=== PATIENT | female | born 1995 | race Caucasian/White ===

== ENCOUNTER 2020-03-24 06:43 | Day surgery (SDC) | payer OTHER ==
[~2020-03-24 06:43] MED LIST: Dextrose 5%-0.45% NaCl 1,000 ML IV SCH; Midazolam 1 MG/ML 2 ML SDV ONE; Sodium Chloride 0.9% 10 ML Syringe FLUSH PRN; fentaNYL 100 MCG/2 ML SDV ONE
[2020-03-24] MEDS ORDERED: fentaNYL 100 MCG/2 ML SDV IV ONE ×7 (06:44→08:36)
[2020-03-24] MEDS ORDERED: Midazolam 1 MG/ML 2 ML SDV IV ONE ×9 (06:44→08:39)
[2020-03-24 11:25] VITALS: BP 127/88; PULSE 90
--- NOTE | 2020-03-24 16:38 | OR ---
DATE: 03/24/2020 PROCEDURE: Total colonoscopy, terminal ileoscopy, NBI, and multiple pinch biopsies. INSTRUMENT USED: PCF-H190DL Olympus video colonoscope. PREMEDICATION: Fentanyl 200 mcg intravenous, Versed 6 mg intravenous. The procedure was done under pulse oximetry, BP recording, and air sampling and monitoring. INDICATION: The patient with chronic diarrhea and rectal bleeding unexplained and not responsive to medical measures. Colonoscopic examination is done for detection of any polypoid lesions and removal, biopsies to be obtained for any evidence of microscopic colitis, endoscopic hemostasis therapy if needed. DESCRIPTION OF PROCEDURE: Initial rectal exam showed external hemorrhoidal tags. Rigid anoscopy was normal. The colonoscope was passed with ease up to and beyond the ileocecal junction to visualize normal-appearing terminal ileum, NBI views were obtained. Photographs were taken, multiple pinch biopsies were obtained and sent for histopathology. Photographs were taken of the normal- appearing cecum. No bleeding was noted from any of the visualized areas at the commencement of the examination. Bowel preparation was found to be adequate. Chicago scale 3 in all the regions, total score 9. No stricture. No vascular ectasia. No large isolated ulcerations seen. No evidence of diffuse inflammatory bowel disease in the form of friability, contact bleeding, or ulcerations. No polyp or tumor mass identified. Probing the proximal sides of folds and flexures using adequate distention and clearing up the stool material, withdrawal of the scope was made. Multiple pinch biopsies were taken from the normal-appearing mucosa of the mid transverse colon, mid descending colon, and rectosigmoid and sent for any histopathologic evidence of microscopic colitis. No bleeding was noted from any of the visualized areas. IMPRESSION: External hemorrhoids. The patient tolerated the procedure well. [facility] /[id number]
--- NOTE | 2020-03-24 16:38 | LETTER ---
03/24/2020 RE: SULAIMANSHANITAOLYEN : 1995 [place] [address] Pinto: Ms. Oly Mandel had colonoscopic examination done this morning and she tolerated the procedure well. I herewith send a copy of the endoscopy note and photographs for your review. Thank you. Sincerely, [facility] /[id number]
== END 2020-03-24 10:38 | disposition home or self-care (01) ==
LOC: DL.ENDO 06:43
PROVIDERS: ATTEND Internal Medicine Gastroenterology
DX: K64.4 Residual hemorrhoidal skin tags (principal); K52.9 Noninfective gastroenteritis and colitis, unspecified; K62.5 Hemorrhage of anus and rectum; E66.09 Other obesity due to excess calories; F41.1 Generalized anxiety disorder; F32.9 Major depressive disorder, single episode, unspecified; J45.909 Unspecified asthma, uncomplicated; Z86.69 Personal history of other diseases of the nervous system and sense organs; Z98.890 Other specified postprocedural states; Z68.41 Body mass index [BMI] 40.0-44.9, adult
CPT/HCPCS: 45380; J2250; J3010; J7042

== ENCOUNTER 2020-04-12 06:32 | Day surgery (SDC) | payer OTHER ==
[~2020-04-12 06:32] MED LIST changes: -Dextrose 5%-0.45% NaCl 1,000 ML IV SCH; -Sodium Chloride 0.9% 10 ML Syringe FLUSH PRN
[2020-04-12] MEDS ORDERED: fentaNYL 100 MCG/2 ML SDV IV ONE ×3 (06:33→07:32)
[2020-04-12] MEDS ORDERED: Midazolam 1 MG/ML 2 ML SDV IV ONE ×5 (06:33→07:35)
[2020-04-12] MEDS ORDERED: Dextrose 5%-0.45% NaCl 1,000 ML IV SCH (06:45)
[2020-04-12] MEDS ORDERED: Midazolam 1 MG/ML 2 ML SDV ONE (07:34)
--- NOTE | 2020-04-12 10:15 | LETTER ---
04/12/2020 Susan Pinto MD [address] [address] RE: AYDE RAMÍREZ : 1995 Dr[address] Pinto: Ms. Aldridge Alexandra Marinpardeep had esophagogastroduodenoscopy done this morning and she tolerated the procedure well. I herewith send a copy of the endoscopy note and photographs for your review. Thank you. Sincerely, [facility] /[id number]
[2020-04-12 10:46] VITALS: BP 113/76; PULSE 90
--- NOTE | 2020-04-12 10:47 | OR ---
DATE: 04/12/2020 PROCEDURES: Esophagogastroduodenoscopy and multiple pinch biopsies. INSTRUMENT USED: GIF-HQ190 Olympus video panendoscope. PREMEDICATIONS: No oral or topical anesthesia used. Fentanyl 100 mcg intravenous, Versed 3 mg intravenous. The procedure was done under pulse oximetry, BP recording, and threat monitoring analyst. INDICATION: The patient with persistent heartburn, dyspepsia, as well as related chest pain, unexplained and not responsive to medical measures, on PPI. Esophagogastroduodenoscopy is performed for detection of any active erosive lesions, Pardo esophagus, and/or malignancy also under consideration, H pylori status to be determined, endoscopic hemostasis therapy if needed. The scope was passed with ease. Adequate visualization of the esophagus was made from proximal to distal areas of the esophagus. No upper esophageal lesions identified. No distal esophageal stricture. No uphill or downhill esophageal varices. No Alexia-Carmichael tear. No evidence of erosive esophagitis by Morovis criteria. No esophageal polyp or tumor mass identified. Z-line was seen at around 35 cm distal to the oral verge. Four-quadrant biopsies were taken from the area of the Z-line and sent for any histopathologic evidence of intestinal metaplasia. No proximal gastric varices noted. Gastric fundus examination by retroflexion showed no polypoid lesions. No gastric ulcer, malignant mass, or vascular ectasia identified. Duodenal bulb showed no ulcer. Visualized second part of the duodenum was unremarkable. Multiple pinch biopsies were taken from the gastric antrum and proximal body and sent for PyloriTek test for H pylori and histopathology. No bleeding was noted from any of the visualized areas at the completion of examination. Photographs were taken of the duodenal bulb, gastric antrum, fundus, and distal esophagus. IMPRESSION: Columnar line distal esophagus. The patient tolerated the procedure well. [facility] /[id number]
== END 2020-04-12 09:40 | disposition home or self-care (01) ==
LOC: DL.ENDO 06:32
PROVIDERS: ATTEND Internal Medicine Gastroenterology
DX: K20.9 Esophagitis, unspecified (principal); E66.09 Other obesity due to excess calories; K64.4 Residual hemorrhoidal skin tags; K58.9 Irritable bowel syndrome, unspecified; F41.1 Generalized anxiety disorder; Z68.41 Body mass index [BMI] 40.0-44.9, adult; Z87.19 Personal history of other diseases of the digestive system
CPT/HCPCS: 87077; J2250; J3010; J7042

== ENCOUNTER 2020-09-06 19:51 | Emergency (ER) | payer OTHER ==
[2020-09-06] MEDS ORDERED: Sodium Chloride 0.9% 1,000 ML IV ONE (20:24)
[2020-09-06] MEDS ORDERED: Ondansetron 4 MG/2 ML SDV IVPUSH ONE (20:24)
--- NOTE | 2020-09-06 20:32 | EDM.PDOC ---
ED HPI GENERAL MEDICAL PROBLEM - General Chief Complaint: Abdominal Pain Stated Complaint: STOMACH PAIN Time Seen by Provider: 09/06/20 20:15 Source of Information: Reports: Patient, Old Records, RN, RN Notes Reviewed History Limitations: Reports: No Limitations - History of Present Illness INITIAL COMMENTS - FREE TEXT/NARRATIVE: Patient presents to the ED via personal vehicle with complaints of midepigastric pain. The patient states she is with a LMP of July 31, 2020. She attest to a history of GERD for which she was on Omeprazole via Dr. Herrera, but she has been off of this medication since she discovered she was . She reports the pain woke her up this morning at 0200 and the nausea and vomiting started shortly thereafter. She has experienced roughly five bouts of emesis throughout the day. She states she has tried to eat toast and drink water, but the pain, nausea, and vomiting prevented it. She denies fever, shaking chills, palpitations, shortness of breath, hematemesis, melena, or hematochezia. She does attest to diarrhea yesterday but hasn't had a bowel movement today. Her last meal was at 1800 yesterday. She has trialed TUMS for this pain, with no alleviation of symptoms. Epigastric Pain Score (Numeric/FACES): 9 - Related Data Allergies Allergy/AdvReac Type Severity Reaction Status Date / Time cefixime [From Suprax] Allergy Hives Verified 09/06/20 20:11 Gadolinium-Containing Allergy Hives Verified 09/06/20 20:11 Contrast Medi Home Meds: Home Meds Acetaminophen 325 - 650 mg PO ASDIRECTED PRN 03/23/20 [History] Albuterol [Proair HFA] 1 - 2 puff INH ASDIRECTED PRN 03/23/20 [History] Diclofenac Sodium [Voltaren 1% Gel] 1 applic TOP ASDIRECTED 03/23/20 [History] Erenumab-Aooe [Aimovig Autoinjector] 140 mg INJECT .MONTHLY 03/23/20 [History] Venlafaxine [Effexor XR] 37.5 mg PO DAILY 03/23/20 [History] medroxyPROGESTERone [Depo-Provera] 150 mg INJECT .Q3MTHS 03/23/20 [History] Past Medical History HEENT History: Reports: Impaired Vision, Other (See Below) Other HEENT History: glasses Cardiovascular History: Reports: None Respiratory History: Reports: Asthma, SOB Gastrointestinal History: Reports: None Genitourinary History: Reports: None [employer] WR[employer] History: Reports: Musculoskeletal History: Reports: Arthritis, Fracture Neurological History: Reports: Headaches, Chronic, Migraines Psychiatric History: Reports: Anxiety, Depression Endocrine/Metabolic History: Reports: Obesity/BMI 30+ Hematologic History: Reports: None Immunologic History: Reports: None Oncologic (Cancer) History: Reports: None Dermatologic History: Reports: None - Infectious Disease History Infectious Disease History: Reports: Chicken Pox - Past Surgical History Head Surgeries/Procedures: Reports: None HEENT Surgical History: Reports: Adenoidectomy, Oral Surgery, Tonsillectomy Cardiovascular Surgical History: Reports: None Respiratory Surgical History: Reports: None GI Surgical History: Reports: Colonoscopy Female Surgical History: Reports: None Endocrine Surgical History: Reports: None Neurological Surgical History: Reports: None Musculoskeletal Surgical History: Reports: Other (See Below) Other Musculoskeletal Surgeries/Procedures:: wrist surgery Oncologic Surgical History: Reports: None Dermatological Surgical History: Reports: None Social & Family History - Family History Cardiac: Reports: Hypertension Neurological: Reports: Migraines Oncologic: Reports: Breast, Colon - Tobacco Use Tobacco Use Status *Q: Never Tobacco User Second Hand Smoke Exposure: No - Caffeine Use Caffeine Use: Reports: None - Recreational Drug Use Recreational Drug Use: No - Sexual History Sexual History: Reports: Sexually Active, Single Partner - Living Situation & Occupation Living situation: Reports: Occupation: Employed (Lives with .) ED ROS GENERAL - Review of Systems Review Of Systems: Comprehensive ROS is negative, except as noted in HPI. ED EXAM, GI/ABD - Physical Exam Exam: See Below Exam Limited By: No Limitations General Appearance: Alert, WD/WN, No Apparent Distress Eyes: Bilateral: Normal Appearance, EOMI Throat/Mouth: Normal Inspection, Normal Voice, No Airway Compromise Head: Atraumatic, Normocephalic Neck: Normal Inspection, Supple, Non-Tender, Full Range of Motion. No: Lymphadenopathy (L), Lymphadenopathy (R) Respiratory/Chest: No Respiratory Distress, Lungs Clear, Normal Breath Sounds, No Accessory Muscle Use, Chest Non-Tender Cardiovascular: Normal Peripheral Pulses, Regular Rate, Rhythm, No Edema, No Gallop, No JVD, No Murmur, No Rub GI/Abdominal Exam: Normal Bowel Sounds, Soft, No Abnormal Bruit, No Mass, Pelvis Stable, Tender (To palpation of LUQ) (Female) Exam: Deferred Rectal (Female) Exam: Deferred Back Exam: Normal Inspection, Full Range of Motion. No: CVA Tenderness (L), CVA Tenderness (R) Extremities: Normal Inspection, Normal Range of Motion, Non-Tender, Normal Capillary Refill, No Pedal Edema Neurological: Alert, Oriented, CN II-XII Intact, Normal Cognition, Normal Gait, No Motor/Sensory Deficits Psychiatric: Normal Affect, Normal Mood Skin Exam: Warm, Dry, Intact, Normal Color, No Rash. No: Ecchymosis, Erythema, Jaundice, Mottled, Pallor, Petechiae Course - Vital Signs Last Recorded V/S: Last Vital Signs Temp 97.5 F 09/06/20 19:59 Pulse 101 H 09/06/20 19:59 Resp 19 09/06/20 19:59 BP 115/89 09/06/20 19:59 Pulse Ox 100 09/06/20 19:59 - Orders/Labs/Meds Orders: Active Orders 24 hr Category Date Time Status CULTURE URINE [RM] Stat Lab 09/06/20 20:16 Received Labs: Laboratory Tests 09/06/20 09/06/20 09/06/20 Range/Units 20:16 20:28 20:28 WBC 10.7 H (5.0-10.0) 10^3/uL RBC 5.05 (4.2-5.4) 10^6/uL Hgb 14.0 D (12.0-16.0) g/dL Hct 41.3 (37.0-47.0) % MCV 81.8 D (80-100) fL MCH 27.7 (27.0-34.0) pg MCHC 33.9 (33.0-35.0) g/dL Plt Count 212 (150-450) 10^3/uL Neut % (Auto) 71.9 (42.2-75.2) % Lymph % (Auto) 18.8 L (20.5-50.1) % Marion % (Auto) 8.6 H (2-8) % Eos % (Auto) 0.5 L (1.0-3.0) % Baso % (Auto) 0.2 (0.0-1.0) % Sodium (136-145) mmol/L Potassium (3.5-5.1) mmol/L Chloride (98-107) mmol/L Carbon Dioxide (21-32) mmol/L Anion Gap (7-13) mEq/L BUN (7-18) mg/dL Creatinine (0.55-1.02) mg/dL Est Cr Clr Drug Dosing mL/min Estimated GFR (MDRD) BUN/Creatinine Ratio (No establ ref range) Glucose (74-99) mg/dL Calcium (8.5-10.1) mg/dL Total Bilirubin (0.2-1.0) mg/dL AST (15-37) U/L ALT (14-59) U/L Alkaline Phosphatase (46-116) U/L Total Protein (6.4-8.2) g/dL Albumin (3.4-5.0) g/dL Globulin Albumin/Globulin Ratio Amylase (25-115) U/L Lipase (73-393) U/L HCG, Quant 8533 H (0-6) mIU/mL Urine Color Yellow (YELLOW) Urine Appearance Cloudy (CLEAR) Urine pH 6.0 (5.0-9.0) Ur Specific Crandall >= 1.030 (1.005-1.030) Urine Protein Trace H (NEGATIVE) Urine Glucose (UA) Negative (NEGATIVE) Urine Ketones Trace H (NEGATIVE) Urine Occult Blood Trace-intact H (NEGATIVE) Urine Nitrite Negative (NEGATIVE) Urine Bilirubin Negative (NEGATIVE) Urine Urobilinogen 0.2 (0.2-1.0) mg/dL Ur Leukocyte Esterase Small H (NEGATIVE) Urine RBC 0-5 /HPF Urine WBC 50-75 H (0-5/HPF) /HPF Ur Epithelial Cells Moderate H (NOT SEEN) /HPF Calcium Oxalate Crystal Few H (NOT SEEN) /HPF Amorphous Sediment Occasional (NOT SEEN) /HPF Urine Bacteria Few (0-FEW/HPF) /HPF Urine Mucus Rare (NOT SEEN) /LPF 09/06/20 Range/Units 20:28 WBC (5.0-10.0) 10^3/uL RBC (4.2-5.4) 10^6/uL Hgb (12.0-16.0) g/dL Hct (37.0-47.0) % MCV (80-100) fL MCH (27.0-34.0) pg MCHC (33.0-35.0) g/dL Plt Count (150-450) 10^3/uL Neut % (Auto) (42.2-75.2) % Lymph % (Auto) (20.5-50.1) % Marion % (Auto) (2-8) % Eos % (Auto) (1.0-3.0) % Baso % (Auto) (0.0-1.0) % Sodium 139 (136-145) mmol/L Potassium 3.4 L (3.5-5.1) mmol/L Chloride 102 (98-107) mmol/L Carbon Dioxide 27 (21-32) mmol/L Anion Gap 13.4 H (7-13) mEq/L BUN 10 (7-18) mg/dL Creatinine 0.84 (0.55-1.02) mg/dL Est Cr Clr Drug Dosing 87.64 mL/min Estimated GFR (MDRD) > 60 BUN/Creatinine Ratio 11.9 (No establ ref range) Glucose 116 H (74-99) mg/dL Calcium 9.4 (8.5-10.1) mg/dL Total Bilirubin 0.5 (0.2-1.0) mg/dL AST 11 L (15-37) U/L ALT 40 (14-59) U/L Alkaline Phosphatase 109 (46-116) U/L Total Protein 7.5 (6.4-8.2) g/dL Albumin 4.0 (3.4-5.0) g/dL Globulin 3.5 Albumin/Globulin Ratio 1.1 Amylase 35 (25-115) U/L Lipase 81 (73-393) U/L HCG, Quant (0-6) mIU/mL Urine Color (YELLOW) Urine Appearance (CLEAR) Urine pH (5.0-9.0) Ur Specific Crandall (1.005-1.030) Urine Protein (NEGATIVE) Urine Glucose (UA) (NEGATIVE) Urine Ketones (NEGATIVE) Urine Occult Blood (NEGATIVE) Urine Nitrite (NEGATIVE) Urine Bilirubin (NEGATIVE) Urine Urobilinogen (0.2-1.0) mg/dL Ur Leukocyte Esterase (NEGATIVE) Urine RBC /HPF Urine WBC (0-5/HPF) /HPF Ur Epithelial Cells (NOT SEEN) /HPF Calcium Oxalate Crystal (NOT SEEN) /HPF Amorphous Sediment (NOT SEEN) /HPF Urine Bacteria (0-FEW/HPF) /HPF Urine Mucus (NOT SEEN) /LPF Meds: Medications Discontinued Medications Generic Name Dose Route Start Last Admin Trade Name Tri PRN Reason Stop Dose Admin Sodium Chloride 1,000 mls @ 999 mls/hr 09/06/20 20:24 09/06/20 20:35 Normal Saline IV 09/06/20 21:24 999 mls/hr .BOLUS ONE Administration Ondansetron HCl 4 mg 09/06/20 20:24 09/06/20 20:30 Zofran IVPUSH 09/06/20 20:25 4 mg ONETIME ONE Administration - Re-Assessments/Exams Free Text/Narrative Re-Assessment/Exam: 09/06/20 CBC, CMP, UA unremarkable for acute processes. Lipase/Amylase WNL. HCG Quant 8533. Patient resting comfortably following administration of NS 1L bolus and Zofran 4mg IVP. She states she is still experiencing a pressure within her epigastric, but no pain. Patient instructed to follow up with primary care provider regarding today's visit; she has an initial appointment with Dr. Winslow scheduled for October. Patient instructed to take OTC Unisom, eat small frequent meals, avoid high fat/greasy/spicy foods, and sip water throughout the day to help with nausea. Patient verbalized understanding and agreement with the plan of care. Departure - Departure Time of Disposition: 21:25 Disposition: Home, Self-Care 01 Condition: Good Clinical Impression: Epigastric abdominal pain during in first trimester, Nausea and vomiting during prior to 22 weeks gestation, Dehydration during pregn amanuel - Discharge Information *PRESCRIPTION DRUG MONITORING PROGRAM REVIEWED*: Not Applicable *COPY OF PRESCRIPTION DRUG MONITORING REPORT IN PATIENT ISABELL: Not Applicable Instructions: Abdominal Pain During , [id number], Morning Sickness, [id number] Forms: ED Department Discharge Additional Instructions: 1.) You may take over the counter Unisom to help with nausea. 2.) Eat small, frequent meals avoiding high-fat, spicy, and greasy foods to help with nausea and epigastric pain. 3.) Avoid eating late at night. 4.) Sip plenty of water throughout the day to help with nausea and hydration. 5.) Hot green tea may help with nausea and epigastric pain. 6.) Follow up with Dr. Winslow regarding today's visit, she may want to see you sooner than October. Sepsis Event Note (ED) - Evaluation Sepsis Screening Result: No Definite Risk - Focused Exam Vital Signs: Vital Signs Temp Pulse Resp BP Pulse Ox 09/06/20 19:59 97.5 F 101 H 19 115/89 100 - My Orders Last 24 Hours: My Active Orders 09/06/20 20:16 CULTURE URINE [RM] Stat - Assessment/Plan Last 24 Hours: My Active Orders 09/06/20 20:16 CULTURE URINE [RM] Stat
[2020-09-06 20:52] LABS: ANION GAP 13.4 mEq/L (7-13); CHLORIDE,CL 102 mmol/L (98-107); SODIUM,NA 139 mmol/L (136-145)
[2020-09-06 21:32] VITALS: BP 126/85; PULSE 99
== END 2020-09-06 21:35 | disposition home or self-care (01) ==
LOC: DL.ED 19:51
DX: O99.891 Other specified diseases and conditions complicating pregnancy (principal); R10.13 Epigastric pain; O21.9 Vomiting of pregnancy, unspecified; O99.281 Endocrine, nutritional and metabolic diseases complicating pregnancy, first trimester; E86.0 Dehydration; J45.909 Unspecified asthma, uncomplicated; E66.9 Obesity, unspecified; O99.211 Obesity complicating pregnancy, first trimester; O99.511 Diseases of the respiratory system complicating pregnancy, first trimester; Z3A.01 Less than 8 weeks gestation of pregnancy
CPT/HCPCS: 36415; 80053; 81001; 82150; 83690; 84702; 85025; 87086; 96374; 99283; 99284; J2405; J7030

== ENCOUNTER 2021-04-13 12:39 | Inpatient (IN) | payer OTHER ==
[2021-04-13] MEDS ORDERED: Betamethasone Acetate/Betamethasone Sod Phosphate 30 MG/5 ML MDV IM ONE (13:23)
[2021-04-13] MEDS ORDERED: Calcium Carbonate 500 MG Tab.Chew PO ONE (16:14)
[2021-04-13] MEDS: Labetalol 100 MG Tab PO SCH ×2 (18:53→21:03)
[2021-04-13] MEDS ORDERED: hydrOXYzine HCl 25 MG Tab PO PRN (21:12)
[2021-04-13] MEDS ORDERED: Calcium Carbonate 500 MG Tab.Chew PO PRN (22:24)
[2021-04-14] MEDS ORDERED: Acetaminophen 325 MG Tab PO PRN (10:51)
[2021-04-14] MEDS ORDERED: Sodium Chloride 0.9% 10 ML Syringe FLUSH PRN (10:51)
[2021-04-14] MEDS ORDERED: Promethazine 25 MG/ML SDV IM PRN (10:55)
[2021-04-14] MEDS ORDERED: ePHEDrine 50 MG/ML SDV IVPUSH PRN (10:55)
[2021-04-14] MEDS ORDERED: Naloxone 2 MG/2 ML Syringe IVPUSH PRN (10:55)
[2021-04-14] MEDS ORDERED: Lactated Ringers 500 ML IV SCH ×2 (11:00)
[2021-04-14] MEDS: Labetalol 100 MG Tab PO SCH ×2 (11:23→21:51)
--- NOTE | 2021-04-14 11:51 | HP ---
HISTORY OF PRESENT ILLNESS: This patient is a 25-year-old 2, para 1-0-0- 1 female, last menstrual period 07/31/2020, EDC 05/07/2021, EGA 36 and 5/7 weeks gestation who reported to Labor and Delivery yesterday with elevated blood pressures. They were running anywhere between 150s to 170s over high 80s to 100s. She did not have a headache, blurred vision, epigastric pain, or scotomata. She did have proteinuria the week before, it was at 300 mg/dL on a protein creatinine ratio. We ended up to give her labetalol 200 mg p.o. to bring her blood pressures down last night and actually it worked very nicely. It is running anywhere between 1 teens to 120s over 70s. Her last blood pressure was 140/86. She denies any nausea, vomiting, diarrhea. No fever or chills. No dysuria, frequency, urgency with urination. No leg pain, leg edema, headaches, blurred vision, epigastric pain, or scotomata. She also had history of gestational diabetes, diet controlled, well controlled. She stated that her last on 07/18/2018, she delivered a 39 and 5/7 week male infant, weighing 6 pounds 11.6 ounces of sequela. PAST MEDICAL HISTORY: Gestational diabetes, diet controlled. No history of hypertension for now, cancer, thyroid disease, thromboembolic disease, breast lesions, or blood transfusions. FAMILY HISTORY: Positive for breast cancer in her mother at the age of 50. Migraine headaches in her cousin and grandmother and aunt. SOCIAL HISTORY: She denies any tobacco use, alcohol use, or illicit drug use. She is . Her is [place]. 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 PAST SURGICAL HISTORY: Tonsillectomy, adenoidectomy, wrist scaphoid repair with bone graft in 2010. MEDICATIONS: vitamin and sertraline. ALLERGIES: Suprax, gadolinium. LABS: Blood type A positive, antibody screen negative. Rubella immune. Syphilis nonreactive. Hepatitis B surface antigen nonreactive. HIV nonreactive. Hepatitis C antibody nonreactive. Group B strep pending. REVIEW OF SYSTEMS: All pertinent positive and negative review of systems per HPI. All other systems reviewed and negative. 10 point review of systems discussed with the patient. She has no other issues. OBJECTIVE: Vital Signs: Well-developed, well-nourished female in no acute distress. Vital Signs: Stable. Afebrile. Blood pressure 140/86, pulse 87, respirations 18, O2 saturation 98%, temp 98.8 degrees. HEENT: Unremarkable. Abdomen: Gravid, nontender. heart tones in the 130s to 140s, occasional contractions noted. No decelerations. Category 1 strip. GENITOURINARY: Cervix- 1 cm/70%/-3 Extremities: No edema, erythema, or tenderness noted. ASSESSMENT: 1. A 36 and 5/7 week intrauterine . 2. Preeclampsia without severe features. PLAN: 1. I had a long discussion with the patient and her along with Dr. Gallego, the 2nd year [employer] market president. After she gets her 2nd dose of betamethasone 12 mg IM at 1:30 a.m. this afternoon, we will start Pitocin for induction of labor. 2. Risks, benefits, complications, and side effects were discussed with the patient. 3. All questions answered. 4. We did discuss magnesium sulfate if her blood pressures get into the severe range where she starts having severe symptoms. 5. We will start Pitocin IV and then artificial rupture of membranes when the cervix ripens more. 6. Dr. Jessica Quinonez has been apprised to the plan, so she can be ready for the infant at the time of delivery. [facility] /[id number] MTDD
[2021-04-14] MEDS: Lactated Ringers 1,000 ML IV SCH ×2 (13:03→23:47)
[2021-04-14] MEDS: Oxytocin/Normal Saline 30 UNIT/500 ML BAG IV SCH (13:28)
[2021-04-14] MEDS ORDERED: Betamethasone Acetate/Betamethasone Sod Phosphate 30 MG/5 ML MDV IM ONE (13:30)
[2021-04-14] MEDS ORDERED: Nalbuphine 10 MG/1 ML Vial IV ONE ×2 (16:56→21:37)
[2021-04-14] MEDS ORDERED: Penicillin G Potassium 5 MILLUNITS in Sodium Chloride 0.9% 100 ML IV ONE (17:22)
--- NOTE | 2021-04-14 20:43 | PCM.PNLD ---
<Megan Gallego H - Last Filed: 04/14/21 20:38> Labor Progress Note - VS & Meds Vital Signs: Last Vital Signs Temp 99.3 F 04/14/21 17:15 Pulse 83 04/14/21 18:45 Resp 20 04/14/21 18:45 BP 132/63 04/14/21 18:45 Pulse Ox Active Medications: Current Medications Acetaminophen (Acetaminophen 325 Mg Tab) 650 mg PO Q4H PRN PRN Reason: Pain/Fever Calcium Carbonate/Glycine (Calcium Carbonate 500 Mg Tab.Chew) 1,000 mg PO Q2H PRN PRN Reason: Heartburn Last Admin: 04/13/21 22:42 Dose: 1,000 mg Documented by: Ephedrine Sulfate (Ephedrine 50 Mg/Ml Sdv) 5 mg IVPUSH Q5M PRN PRN Reason: See Label Comments Hydroxyzine HCl (Hydroxyzine Hcl 25 Mg Tab) 50 mg PO BEDTIME PRN PRN Reason: Sleep Lactated Ringer's (Ringers, Lactated) 1,000 mls @ 125 mls/hr IV ASDIRECTED [facility] Last Admin: 04/14/21 13:03 Dose: 125 mls/hr Documented by: Oxytocin/Sodium Chloride (Pitocin In Ns 30 Unit/500 Ml) 30 unit in 500 mls @ 2 mls/hr IV TITRATE [facility]; Protocol Last Titration: 04/14/21 18:00 Dose: 11 munits/min, 11 mls/hr Documented by: Lactated Ringer's (Ringers, Lactated) 500 mls @ 999 mls/hr IV SEECOMMENT [place] Lactated Ringer's (Ringers, Lactated) 500 mls @ 999 mls/hr IV .BOLUS [place] Penicillin G Potassium 3 (millunits/ Sodium Chloride) 100 mls @ 200 mls/hr IV Q4H [facility] Labetalol HCl (Labetalol 100 Mg Tab) 200 mg PO BID [facility] Last Admin: 04/14/21 11:23 Dose: Not Given Documented by: Naloxone HCl (Naloxone 2 Mg/2 Ml Syringe) 0.1 mg IVPUSH SEECOMMENT PRN PRN Reason: Respiratory Depression Ondansetron HCl (Ondansetron 4 Mg/2 Ml Sdv) 4 mg IVPUSH Q4H PRN PRN Reason: Nausea/Vomiting Promethazine HCl (Promethazine 25 Mg/Ml Sdv) 12.5 mg IM Q6H PRN PRN Reason: Nausea/Vomiting Sodium Chloride (Sodium Chloride 0.9% 10 Ml Syringe) 10 ml FLUSH ASDIRECTED PRN PRN Reason: Keep Vein Open Discontinued Medications Betamethasone Acet/Betameth SodPhos (Betamethasone Acetate/Betamethasone Sod Phosphate 30 Mg/5 Ml Mdv) 12 mg IM ONETIME ONE Stop: 04/13/21 13:24 Last Admin: 04/13/21 13:57 Dose: 12 mg Documented by: Betamethasone Acet/Betameth SodPhos (Betamethasone Acetate/Betamethasone Sod Phosphate 30 Mg/5 Ml Mdv) 12 mg IM ONETIME ONE Stop: 04/14/21 13:31 Last Admin: 04/14/21 13:25 Dose: 12 mg Documented by: Calcium Carbonate/Glycine (Calcium Carbonate 500 Mg Tab.Chew) 1,000 mg PO ONETIME ONE Stop: 04/13/21 16:15 Last Admin: 04/13/21 16:27 Dose: 1,000 mg Documented by: Penicillin G Potassium 5 (millunits/ Sodium Chloride) 100 mls @ 200 mls/hr IV ONETIME ONE Stop: 04/14/21 17:51 Last Admin: 04/14/21 18:19 Dose: 200 mls/hr Documented by: Nalbuphine HCl (Nalbuphine 10 Mg/1 Ml Vial) 10 mg IV ONETIME ONE Stop: 04/14/21 16:57 Last Admin: 04/14/21 17:13 Dose: 10 mg Documented by: - Uterine Contractions Uterine Monitoring Mode: External Mcmillin Contraction Frequency (min): 3-7 Contraction Duration (sec): 90-120 Contraction Intensity: Moderate Uterine Resting Tone: Soft - Monitoring Monitor Mode: External Ultrasound Heart Rate (FHR) Baseline: 120 Heart Rate (FHR) Variability: Moderate (6-25 bpm) Accelerations: Present, 15x15 Decelerations: None Strip Review: Category I - Vaginal Exam Dilation (cm): 2.5 Effacement (Percent): 75 Station: -2 Cervical Position: Anterior Sterile Vaginal Exam Performed By: Megan Gallego - Labor Progress (Free Text) Labor Progress: To patient's room for cervical exam and potential AROM for labor augmentation. Patient comfortable. Initial cervical exam is 1.5cm, 75% effaced, -2 station. Head well engaged. Discussed risks and benefits with patient regarding AROM. Questions answered. Patient voiced verbal consent for AROM. Amniohook placed. AROM occurred with clear fluid. Patient tolerated procedure well. Plan: 1. Continue routine labor management. 2. Continue with pitocin increase 2x2 max of 20. Currently at a dose of 13U. Procedure was completed under supervision of Dr. Quinn. -Megan Gallego MD PGY-II. <Artur Quinn - Last Filed: 04/15/21 06:48> Labor Progress Note - VS & Meds Vital Signs: Last Vital Signs Temp 98 F 04/15/21 04:45 Pulse 79 04/15/21 05:15 Resp 20 04/14/21 18:45 BP 139/67 04/15/21 05:15 Pulse Ox 98 04/15/21 04:30 Active Medications: Current Medications Acetaminophen (Acetaminophen 325 Mg Tab) 650 mg PO Q4H PRN PRN Reason: Pain/Fever Calcium Carbonate/Glycine (Calcium Carbonate 500 Mg Tab.Chew) 1,000 mg PO Q2H PRN PRN Reason: Heartburn Last Admin: 04/13/21 22:42 Dose: 1,000 mg Documented by: Ephedrine Sulfate (Ephedrine 50 Mg/Ml Sdv) 5 mg IVPUSH Q5M PRN PRN Reason: See Label Comments Hydroxyzine HCl (Hydroxyzine Hcl 25 Mg Tab) 50 mg PO BEDTIME PRN PRN Reason: Sleep Lactated Ringer's (Ringers, Lactated) 1,000 mls @ 125 mls/hr IV ASDIRECTED [facility] Last Admin: 04/15/21 06:21 Dose: 125 mls/hr Documented by: Oxytocin/Sodium Chloride (Pitocin In Ns 30 Unit/500 Ml) 30 unit in 500 mls @ 2 mls/hr IV TITRATE [place]; Protocol Last Titration: 04/15/21 05:39 Dose: 8 munits/min, 8 mls/hr Documented by: Lactated Ringer's (Ringers, Lactated) 500 mls @ 999 mls/hr IV SEECOMMENT [facility] Lactated Ringer's (Ringers, Lactated) 500 mls @ 999 mls/hr IV .BOLUS [place] Penicillin G Potassium 3 (millunits/ Sodium Chloride) 100 mls @ 200 mls/hr IV Q4H [facility] Last Admin: 04/15/21 05:34 Dose: 200 mls/hr Documented by: Labetalol HCl (Labetalol 100 Mg Tab) 200 mg PO BID [facility] Last Admin: 04/14/21 21:51 Dose: Not Given Documented by: Naloxone HCl (Naloxone 2 Mg/2 Ml Syringe) 0.1 mg IVPUSH SEECOMMENT PRN PRN Reason: Respiratory Depression Ondansetron HCl (Ondansetron 4 Mg/2 Ml Sdv) 4 mg IVPUSH Q4H PRN PRN Reason: Nausea/Vomiting Last Admin: 04/15/21 06:31 Dose: 4 mg Documented by: Promethazine HCl (Promethazine 25 Mg/Ml Sdv) 12.5 mg IM Q6H PRN PRN Reason: Nausea/Vomiting Sodium Chloride (Sodium Chloride 0.9% 10 Ml Syringe) 10 ml FLUSH ASDIRECTED PRN PRN Reason: Keep Vein Open Discontinued Medications Betamethasone Acet/Betameth SodPhos (Betamethasone Acetate/Betamethasone Sod Phosphate 30 Mg/5 Ml Mdv) 12 mg IM ONETIME ONE Stop: 04/13/21 13:24 Last Admin: 04/13/21 13:57 Dose: 12 mg Documented by: Betamethasone Acet/Betameth SodPhos (Betamethasone Acetate/Betamethasone Sod Phosphate 30 Mg/5 Ml Mdv) 12 mg IM ONETIME ONE Stop: 04/14/21 13:31 Last Admin: 04/14/21 13:25 Dose: 12 mg Documented by: Calcium Carbonate/Glycine (Calcium Carbonate 500 Mg Tab.Chew) 1,000 mg PO ONETIME ONE Stop: 04/13/21 16:15 Last Admin: 04/13/21 16:27 Dose: 1,000 mg Documented by: Epinephrine HCl (Epinephrine 1 Mg/Ml Sdv) Confirm Administered Dose 1 mg .ROUTE .STK-MED ONE Stop: 04/15/21 00:11 Last Admin: 04/15/21 02:10 Dose: Not Given Documented by: Epinephrine HCl (Epinephrine 1 Mg/Ml Sdv) Confirm Administered Dose 1 mg .ROUTE .STK-MED ONE Stop: 04/15/21 06:11 Last Admin: 04/15/21 06:26 Dose: Not Given Documented by: Fentanyl (Fentanyl 100 Mcg/2 Ml Sdv) Confirm Administered Dose 100 mcg .ROUTE .STK-MED ONE Stop: 04/15/21 00:11 Last Admin: 04/15/21 02:10 Dose: Not Given Documented by: Fentanyl (Fentanyl 100 Mcg/2 Ml Sdv) Confirm Administered Dose 100 mcg .ROUTE .STK-MED ONE Stop: 04/15/21 06:10 Last Admin: 04/15/21 06:26 Dose: Not Given Documented by: Penicillin G Potassium 5 (millunits/ Sodium Chloride) 100 mls @ 200 mls/hr IV ONETIME ONE Stop: 04/14/21 17:51 Last Admin: 04/14/21 18:19 Dose: 200 mls/hr Documented by: Nalbuphine HCl (Nalbuphine 10 Mg/1 Ml Vial) 10 mg IV ONETIME ONE Stop: 04/14/21 16:57 Last Admin: 04/14/21 17:13 Dose: 10 mg Documented by: Nalbuphine HCl (Nalbuphine 10 Mg/1 Ml Vial) 10 mg IV ONETIME ONE Stop: 04/14/21 21:38 Last Admin: 04/14/21 21:49 Dose: 10 mg Documented by: Sufentanil Citrate (Sufentanil 50 Mcg/1 Ml Amp) Confirm Administered Dose 50 mcg .ROUTE .STK-MED ONE Stop: 04/15/21 00:11 Last Admin: 04/15/21 02:11 Dose: Not Given Documented by: Sufentanil Citrate (Sufentanil 50 Mcg/1 Ml Amp) Confirm Administered Dose 50 mcg .ROUTE .STK-MED ONE Stop: 04/15/21 06:11 Last Admin: 04/15/21 06:26 Dose: Not Given Documented by: - Labor Progress (Free Text) Labor Progress: The [facility] executive vice president Dr. Megan Gallego and I discussed the patient and I was involved the entire time with all planning and treatment of this patient.
[2021-04-14] MEDS: Penicillin G Potassium 3 MILLUNITS in Sodium Chloride 0.9% 100 ML IV SCH (21:30)
[2021-04-14] MEDS: Ondansetron 4 MG/2 ML SDV IVPUSH PRN (23:47)
[2021-04-15] MEDS ORDERED: fentaNYL 100 MCG/2 ML SDV ITHECAL ONE ×3 (00:10→06:10)
[2021-04-15] MEDS ORDERED: EPINEPHrine 1 MG/ML SDV ONE ×4 (00:10→06:10)
[2021-04-15] MEDS ORDERED: fentaNYL 100 MCG/2 ML SDV ONE ×2 (00:10→06:09)
[2021-04-15] MEDS: Lactated Ringers 1,000 ML IV SCH ×3 (00:18→06:21)
--- NOTE | 2021-04-15 00:41 | PCM.PRNOTE ---
- Free Text/Narrative Note: Requested to provide analgesia to full term patient in severe pain. Upon entering the room, patient is sitting on edge of bed complaining of severe abdominal/pelvic pain and discomfort. Procedure was discussed with patient including adverse outcomes and expectations. Pt consented to analgesia, SAB/IT. Pt placed into a proper sitting position. Landmarks for SAB/IT were identified and marked. Hands were washed and appropriate PPE was applied. Back was prepped with betadine x3. A sterile, transparent, fenestrated drape was applied. Excess betadine was removed. Using 3 mL of a 1% lidocaine solution, a skin wheel was placed at the L2/L3 interspace. A 24 ga (4 inch) Pencan spinal needle was inserted until positive for CSF. Negative for heme or paresthesias. Injected fentanyl 25 mcg, sufentanil 20 mcg, and 7.5 mg of a 0.75% bupivacaine solution with an epi wash. Pt was placed left lateral tilt position for approximately 20 minutes. There were zero complications or adverse outcomes. Will continue to monitor. Procedure Date & Time: 04/15/21 [id number]
[2021-04-15] MEDS: Penicillin G Potassium 3 MILLUNITS in Sodium Chloride 0.9% 100 ML IV SCH ×3 (01:39→10:02)
[2021-04-15] MEDS: Ondansetron 4 MG/2 ML SDV IVPUSH PRN (06:31)
--- NOTE | 2021-04-15 06:55 | PCM.PRNOTE ---
- Free Text/Narrative Note: Requested to provide analgesia to full term patient in severe pain. Upon entering the room, patient is sitting on edge of bed complaining of severe abdominal/pelvic pain and discomfort. Procedure was discussed with patient including adverse outcomes and expectations. Pt consented to analgesia, SAB/IT. Pt placed into a proper sitting position. Landmarks for SAB/IT were identified and marked. Hands were washed and appropriate PPE was applied. Back was prepped with betadine x3. A sterile, transparent, fenestrated drape was applied. Excess betadine was removed. Using 3 mL of a 1% lidocaine solution, a skin wheel was placed at the L2/L3 interspace. A 24 ga (4 inch) Pencan spinal needle was inserted until positive for CSF. Negative for heme or paresthesias. Injected fentanyl 20 mcg, sufentanil 20 mcg, and 6 mg of a 0.75% bupivacaine solution with an epi wash. Pt was placed left lateral tilt position for approximately 20 minutes. There were zero complications or adverse outcomes. Will continue to monitor. Procedure Date & Time: 04/15/21 [id number]
--- NOTE | 2021-04-15 07:00 | PCM.PNLD ---
Labor Progress Note - VS & Meds Vital Signs: Last Vital Signs Temp 98 F 04/15/21 04:45 Pulse 79 04/15/21 05:15 Resp 20 04/14/21 18:45 BP 139/67 04/15/21 05:15 Pulse Ox 98 04/15/21 04:30 Active Medications: Current Medications Acetaminophen (Acetaminophen 325 Mg Tab) 650 mg PO Q4H PRN PRN Reason: Pain/Fever Calcium Carbonate/Glycine (Calcium Carbonate 500 Mg Tab.Chew) 1,000 mg PO Q2H PRN PRN Reason: Heartburn Last Admin: 04/13/21 22:42 Dose: 1,000 mg Documented by: Ephedrine Sulfate (Ephedrine 50 Mg/Ml Sdv) 5 mg IVPUSH Q5M PRN PRN Reason: See Label Comments Hydroxyzine HCl (Hydroxyzine Hcl 25 Mg Tab) 50 mg PO BEDTIME PRN PRN Reason: Sleep Lactated Ringer's (Ringers, Lactated) 1,000 mls @ 125 mls/hr IV ASDIRECTED [facility] Last Admin: 04/15/21 06:21 Dose: 125 mls/hr Documented by: Oxytocin/Sodium Chloride (Pitocin In Ns 30 Unit/500 Ml) 30 unit in 500 mls @ 2 mls/hr IV TITRATE [facility]; Protocol Last Titration: 04/15/21 05:39 Dose: 8 munits/min, 8 mls/hr Documented by: Lactated Ringer's (Ringers, Lactated) 500 mls @ 999 mls/hr IV SEECOMMENT [place] Lactated Ringer's (Ringers, Lactated) 500 mls @ 999 mls/hr IV .BOLUS [place] Penicillin G Potassium 3 (millunits/ Sodium Chloride) 100 mls @ 200 mls/hr IV Q4H [facility] Last Admin: 04/15/21 05:34 Dose: 200 mls/hr Documented by: Labetalol HCl (Labetalol 100 Mg Tab) 200 mg PO BID [facility] Last Admin: 04/14/21 21:51 Dose: Not Given Documented by: Naloxone HCl (Naloxone 2 Mg/2 Ml Syringe) 0.1 mg IVPUSH SEECOMMENT PRN PRN Reason: Respiratory Depression Ondansetron HCl (Ondansetron 4 Mg/2 Ml Sdv) 4 mg IVPUSH Q4H PRN PRN Reason: Nausea/Vomiting Last Admin: 04/15/21 06:31 Dose: 4 mg Documented by: Promethazine HCl (Promethazine 25 Mg/Ml Sdv) 12.5 mg IM Q6H PRN PRN Reason: Nausea/Vomiting Sodium Chloride (Sodium Chloride 0.9% 10 Ml Syringe) 10 ml FLUSH ASDIRECTED PRN PRN Reason: Keep Vein Open Discontinued Medications Betamethasone Acet/Betameth SodPhos (Betamethasone Acetate/Betamethasone Sod Phosphate 30 Mg/5 Ml Mdv) 12 mg IM ONETIME ONE Stop: 04/13/21 13:24 Last Admin: 04/13/21 13:57 Dose: 12 mg Documented by: Betamethasone Acet/Betameth SodPhos (Betamethasone Acetate/Betamethasone Sod Phosphate 30 Mg/5 Ml Mdv) 12 mg IM ONETIME ONE Stop: 04/14/21 13:31 Last Admin: 04/14/21 13:25 Dose: 12 mg Documented by: Calcium Carbonate/Glycine (Calcium Carbonate 500 Mg Tab.Chew) 1,000 mg PO ONETIME ONE Stop: 04/13/21 16:15 Last Admin: 04/13/21 16:27 Dose: 1,000 mg Documented by: Epinephrine HCl (Epinephrine 1 Mg/Ml Sdv) Confirm Administered Dose 1 mg .ROUTE .STK-MED ONE Stop: 04/15/21 00:11 Last Admin: 04/15/21 02:10 Dose: Not Given Documented by: Epinephrine HCl (Epinephrine 1 Mg/Ml Sdv) Confirm Administered Dose 1 mg .ROUTE .STK-MED ONE Stop: 04/15/21 06:11 Last Admin: 04/15/21 06:26 Dose: Not Given Documented by: Fentanyl (Fentanyl 100 Mcg/2 Ml Sdv) Confirm Administered Dose 100 mcg .ROUTE .STK-MED ONE Stop: 04/15/21 00:11 Last Admin: 04/15/21 02:10 Dose: Not Given Documented by: Fentanyl (Fentanyl 100 Mcg/2 Ml Sdv) Confirm Administered Dose 100 mcg .ROUTE .STK-MED ONE Stop: 04/15/21 06:10 Last Admin: 04/15/21 06:26 Dose: Not Given Documented by: Penicillin G Potassium 5 (millunits/ Sodium Chloride) 100 mls @ 200 mls/hr IV ONETIME ONE Stop: 04/14/21 17:51 Last Admin: 04/14/21 18:19 Dose: 200 mls/hr Documented by: Nalbuphine HCl (Nalbuphine 10 Mg/1 Ml Vial) 10 mg IV ONETIME ONE Stop: 04/14/21 16:57 Last Admin: 04/14/21 17:13 Dose: 10 mg Documented by: Nalbuphine HCl (Nalbuphine 10 Mg/1 Ml Vial) 10 mg IV ONETIME ONE Stop: 04/14/21 21:38 Last Admin: 04/14/21 21:49 Dose: 10 mg Documented by: Sufentanil Citrate (Sufentanil 50 Mcg/1 Ml Amp) Confirm Administered Dose 50 mcg .ROUTE .STK-MED ONE Stop: 04/15/21 00:11 Last Admin: 04/15/21 02:11 Dose: Not Given Documented by: Sufentanil Citrate (Sufentanil 50 Mcg/1 Ml Amp) Confirm Administered Dose 50 mcg .ROUTE .STK-MED ONE Stop: 04/15/21 06:11 Last Admin: 04/15/21 06:26 Dose: Not Given Documented by: - Uterine Contractions Uterine Monitoring Mode: External Bowler Contraction Frequency (min): 3-5 Contraction Duration (sec): 60-100 Contraction Intensity: Moderate Uterine Resting Tone: Soft - Monitoring Monitor Mode: External Ultrasound Heart Rate (FHR) Baseline: 120 Heart Rate (FHR) Variability: Moderate (6-25 bpm) Accelerations: Present, 15x15 Decelerations: None Strip Review: Category I - Vaginal Exam Dilation (cm): 8 Effacement (Percent): 100 Station: -2 Cervical Position: Anterior Sterile Vaginal Exam Performed By: Megan Gallego Vaginal Exam Comment: CLEAR FLUID STILL LEAKING - Labor Progress (Free Text) Labor Progress: Patient tolerating contractions after intrathecal and Nitrox. Second Intrathecal placed with good results. Pitocin at 10 mu/min. FHT's 120's to 130's.
[2021-04-15] MEDS ORDERED: Benzocaine/Menthol 20%-0.5% Spray 78 GM Cannister TOP PRN (07:01)
[2021-04-15] MEDS ORDERED: Docusate Sodium 100 MG Cap PO PRN (07:01)
[2021-04-15] MEDS ORDERED: Tranexamic Acid 1,000 MG in Sodium Chloride 0.9% 100 ML IV PRN (07:01)
[2021-04-15] MEDS ORDERED: Acetaminophen 325 MG Tab PO PRN (07:01)
[2021-04-15] MEDS ORDERED: Misoprostol 400 MCG (4 X 100 MCG TAB) RECTAL PRN (07:01)
[2021-04-15] MEDS ORDERED: Sodium Chloride 0.9% 10 ML Syringe FLUSH PRN (07:01)
[2021-04-15] MEDS ORDERED: Carboprost Tromethamine 250 MCG/1 ML Amp IM PRN (07:01)
[2021-04-15] MEDS ORDERED: Simethicone 80 MG Tab.Chew PO PRN (07:01)
[2021-04-15] MEDS ORDERED: Zolpidem 5 MG Tab PO PRN (07:01)
[2021-04-15] MEDS: Oxytocin/Normal Saline 30 UNIT/500 ML BAG IV SCH (08:00)
--- NOTE | 2021-04-15 08:40 | PCM.DEL ---
L & D Note - General Info Date of Service: 04/15/21 - Delivery Note Provider: Megan Gallego Delivery Comments (Free Text/Narrative):: Date:04/15/2021 Delivery Summary:Oly Mandel is a 25yo female at 36w6d who presented on 04/13/21 at 36w4d with the complaint of gestational hypertension and concerns for Pre-eclampsia. Patient was monitored overnight and treated with Labetolol 200mg PO BID. She was also given first dose of Betamethasone 12mg IM. PIH labs with urine protein to creatinine ratio of 0.3 and then 0.284. Patient received second dose of betamethasone at 1330 on 04/14/21. She subsequently underwent induction of labor for pre-eclampsia with Pitocin. On presentation she was noted to be 1cm dilated, 50% effaced and -3 station. She is GBS unknown (collected at triage), A+ blood type, Rubella Immune. Patient was adequately treated with Penicillin due to unknown status. She also had AROM with clear fluid at 2030. Patient received IV Nubain for pain control until dilated to the point of intrathecal. Requested intrathecal anesthesia and was initiated at 0000 and 0600. Patient continued to progress as expected. At 0730 patient was noted to be complete and began pushing at 0730 with adequate progress. presentation in the WANDA position at 0740 with delivery of subsequently thereafter. Time of was 0740. was brought directly to mother's chest for skin to skin and initiation of bonding. Delayed cord clapping was completed, cord was subsequently clamped then cut by father of baby. With gentle fundal massage and cord traction placental delivery occurred at 0748 and was noted to be intact with 3 vessel cord. Upon subsequent vaginal examination a 1st degree perineal/vaginal laceration that was repaired in the usual fashion with 1 figure of 8 stitch with 3-O Vicryl. Anatomic re-approximation and hemostasis achieved. Infant was bulb suctioned, dried, and stimulated on mother's chest with spontaneous cry heard. scores were 8 and 8 at one and five minutes respectively. Both mother and infant were doing well immediately . was brought to warmer for further evaluation after and was noted to be doing well with stimulation. She was subsequently brought back to mother and father for bonding. Episiotomy: none Laceration: 1st degree perineal/vaginal laceration Repair: 1 figure of eight stitch with hemostasis. Anesthesia:Intrathecal EBL: 100ml findings: Sex:femaleGestational Age: 36w6d Delivery:spontaneous vaginal delivery Living: living Weight: 2870g Height: 13 1/2in Presentation: WANDA Apgars:8 and 8 at 1' and 5' respectively Cord: 3 vessel Delivery was completed today by myself and Dr. Quinn. Delivery summary is under advisement of Dr. Quinn. -Megan Gallego MD, PGY-II - General Info Date of Service: 04/15/21 - Patient Data Vitals - Most Recent: Last Vital Signs Temp 98.0 F 04/15/21 07:00 Pulse 69 04/15/21 07:15 Resp 20 04/14/21 18:45 BP 131/65 04/15/21 07:15 Pulse Ox 98 04/15/21 04:30 Weight - Most Recent: 239 lb Lab Results Last 24 Hours: Laboratory Results - last 24 hr 04/14/21 Range/Units 13:00 WBC 12.1 H (5.0-10.0) 10^3/uL RBC 3.79 L (4.2-5.4) 10^6/uL Hgb 11.0 L (12.0-16.0) g/dL Hct 31.9 L (37.0-47.0) % MCV 84.2 (80-100) fL MCH 29.0 (27.0-34.0) pg MCHC 34.5 (33.0-35.0) g/dL Plt Count 166 (150-450) 10^3/uL Neut % (Auto) 80.6 H (42.2-75.2) % Lymph % (Auto) 12.6 L (20.5-50.1) % [place] % (Auto) 6.5 (2-8) % Eos % (Auto) 0.1 L (1.0-3.0) % Baso % (Auto) 0.2 (0.0-1.0) % Med Orders - Current: Current Medications Acetaminophen (Acetaminophen 325 Mg Tab) 650 mg PO Q4H PRN PRN Reason: Pain/Fever Acetaminophen (Acetaminophen 325 Mg Tab) 650 mg PO Q6H PRN PRN Reason: Pain/Fever Benzocaine/Menthol (Benzocaine/Menthol 20%-0.5% [place] 78 Gm Cannister) 0 gm TOP Q4H PRN PRN Reason: Perineal comfort measures Calcium Carbonate/Glycine (Calcium Carbonate 500 Mg Tab.Chew) 1,000 mg PO Q2H PRN PRN Reason: Heartburn Last Admin: 04/13/21 22:42 Dose: 1,000 mg Documented by: Carboprost Tromethamine (Carboprost Tromethamine 250 Mcg/1 Ml Amp) 250 mcg IM ASDIRECTED PRN PRN Reason: Excessive vaginal bleeding Docusate Sodium (Docusate Sodium 100 Mg Cap) 100 mg PO BID PRN PRN Reason: Constipation Ephedrine Sulfate (Ephedrine 50 Mg/Ml Sdv) 5 mg IVPUSH Q5M PRN PRN Reason: See Label Comments Ferrous Sulfate (Ferrous Sulfate 325 Mg Tab) 325 mg PO BIDMEALS [place] Hydroxyzine HCl (Hydroxyzine Hcl 25 Mg Tab) 50 mg PO BEDTIME PRN PRN Reason: Sleep Lactated Ringer's (Ringers, Lactated) 1,000 mls @ 125 mls/hr IV ASDIRECTED [facility] Last Admin: 04/15/21 06:21 Dose: 125 mls/hr Documented by: Oxytocin/Sodium Chloride (Pitocin In Ns 30 Unit/500 Ml) 30 unit in 500 mls @ 2 mls/hr IV TITRATE [facility]; Protocol Last Titration: 04/15/21 05:39 Dose: 8 munits/min, 8 mls/hr Documented by: Lactated Ringer's (Ringers, Lactated) 500 mls @ 999 mls/hr IV SEECOMMENT [facility] Lactated Ringer's (Ringers, Lactated) 500 mls @ 999 mls/hr IV .BOLUS [facility] Penicillin G Potassium 3 (millunits/ Sodium Chloride) 100 mls @ 200 mls/hr IV Q4H [facility] Last Admin: 04/15/21 05:34 Dose: 200 mls/hr Documented by: Tranexamic Acid 1,000 mg/ (Sodium Chloride) 110 mls @ 660 mls/hr IV ONETIME PRN PRN Reason: Bleeding Ibuprofen (Ibuprofen 800 Mg Tab) 800 mg PO Q8H PRN PRN Reason: Cramping Labetalol HCl (Labetalol 100 Mg Tab) 200 mg PO BID [facility] Last Admin: 04/14/21 21:51 Dose: Not Given Documented by: Misoprostol (Misoprostol 400 Mcg (4 X 100 Mcg Tab)) 800 mcg RECTAL ONETIME PRN PRN Reason: Hemorrhage Naloxone HCl (Naloxone 2 Mg/2 Ml Syringe) 0.1 mg IVPUSH SEECOMMENT PRN PRN Reason: Respiratory Depression Ondansetron HCl (Ondansetron 4 Mg/2 Ml Sdv) 4 mg IVPUSH Q4H PRN PRN Reason: Nausea/Vomiting Last Admin: 04/15/21 06:31 Dose: 4 mg Documented by: Prenat Multivit/[place]/Iron/Folic Ac ( Multivitamin With Calcium/Folic Acid/Iron Tab) 1 each PO DAILY [facility] Promethazine HCl (Promethazine 25 Mg/Ml Sdv) 12.5 mg IM Q6H PRN PRN Reason: Nausea/Vomiting Simethicone (Simethicone 80 Mg Tab.Chew) 80 mg PO Q4H PRN PRN Reason: Gas Sodium Chloride (Sodium Chloride 0.9% 10 Ml Syringe) 10 ml FLUSH ASDIRECTED PRN PRN Reason: Keep Vein Open Zolpidem Tartrate (Zolpidem 5 Mg Tab) 5 mg PO BEDTIME PRN PRN Reason: Insomnia Discontinued Medications Betamethasone Acet/Betameth SodPhos (Betamethasone Acetate/Betamethasone Sod Phosphate 30 Mg/5 Ml Mdv) 12 mg IM ONETIME ONE Stop: 04/13/21 13:24 Last Admin: 04/13/21 13:57 Dose: 12 mg Documented by: Betamethasone Acet/Betameth SodPhos (Betamethasone Acetate/Betamethasone Sod Phosphate 30 Mg/5 Ml Mdv) 12 mg IM ONETIME ONE Stop: 04/14/21 13:31 Last Admin: 04/14/21 13:25 Dose: 12 mg Documented by: Calcium Carbonate/Glycine (Calcium Carbonate 500 Mg Tab.Chew) 1,000 mg PO ONETIME ONE Stop: 04/13/21 16:15 Last Admin: 04/13/21 16:27 Dose: 1,000 mg Documented by: Epinephrine HCl (Epinephrine 1 Mg/Ml Sdv) Confirm Administered Dose 1 mg .ROUTE .STK-MED ONE Stop: 04/15/21 00:11 Last Admin: 04/15/21 02:10 Dose: Not Given Documented by: Epinephrine HCl (Epinephrine 1 Mg/Ml Sdv) Confirm Administered Dose 1 mg .ROUTE .STK-MED ONE Stop: 04/15/21 06:11 Last Admin: 04/15/21 06:26 Dose: Not Given Documented by: Fentanyl (Fentanyl 100 Mcg/2 Ml Sdv) Confirm Administered Dose 100 mcg .ROUTE .STK-MED ONE Stop: 04/15/21 00:11 Last Admin: 04/15/21 02:10 Dose: Not Given Documented by: Fentanyl (Fentanyl 100 Mcg/2 Ml Sdv) Confirm Administered Dose 100 mcg .ROUTE .STK-MED ONE Stop: 04/15/21 06:10 Last Admin: 04/15/21 06:26 Dose: Not Given Documented by: Penicillin G Potassium 5 (millunits/ Sodium Chloride) 100 mls @ 200 mls/hr IV ONETIME ONE Stop: 04/14/21 17:51 Last Admin: 04/14/21 18:19 Dose: 200 mls/hr Documented by: Nalbuphine HCl (Nalbuphine 10 Mg/1 Ml Vial) 10 mg IV ONETIME ONE Stop: 04/14/21 16:57 Last Admin: 04/14/21 17:13 Dose: 10 mg Documented by: Nalbuphine HCl (Nalbuphine 10 Mg/1 Ml Vial) 10 mg IV ONETIME ONE Stop: 04/14/21 21:38 Last Admin: 04/14/21 21:49 Dose: 10 mg Documented by: Sodium Chloride (Sodium Chloride 0.9% 10 Ml Syringe) 10 ml FLUSH ASDIRECTED PRN PRN Reason: Keep Vein Open Sufentanil Citrate (Sufentanil 50 Mcg/1 Ml Amp) Confirm Administered Dose 50 mcg .ROUTE .STK-MED ONE Stop: 04/15/21 00:11 Last Admin: 04/15/21 02:11 Dose: Not Given Documented by: Sufentanil Citrate (Sufentanil 50 Mcg/1 Ml Amp) Confirm Administered Dose 50 mcg .ROUTE .STK-MED ONE Stop: 04/15/21 06:11 Last Admin: 04/15/21 06:26 Dose: Not Given Documented by: - Exam Urinary Catheter Total Time: 0Days 0Hours - Problem List & Annotations (1) (normal spontaneous vaginal delivery) SNOMED Code(s): 75981692, 860307812 Code(s): O80 - ENCOUNTER FOR FULL-TERM UNCOMPLICATED DELIVERY Status: Acute Current Visit: Yes (2) Gestational diabetes mellitus (GDM) SNOMED Code(s): 15696645 Code(s): O24.419 - GESTATIONAL DIABETES MELLITUS IN , UNSP CONTROL Status: Acute Current Visit: Yes - Problem List Review Problem List Initiated/Reviewed/Updated: Yes - My Orders Last 24 Hours: My Active Orders 04/14/21 21:30 Penicillin G Potassium [Pfizerpen] 3 millunits Sodium Chloride 0.9% [Normal Saline] 100 ml IV Q4H 04/15/21 08:09 Patient Status Manage Transfer [TRANSFER] Routine - Plan Plan:: 1. Continue routine cares.
[2021-04-15] MEDS: Labetalol 100 MG Tab PO SCH ×2 (09:00→21:00)
[2021-04-15] MEDS: Prenatal Multivitamin with Calcium/Folic Acid/Iron Tab PO SCH (11:32)
[2021-04-15] MEDS: Ferrous Sulfate 325 MG Tab PO SCH ×2 (11:32→18:15)
[2021-04-15] MEDS: Ibuprofen 800 MG Tab PO PRN ×2 (11:32→21:14)
--- NOTE | 2021-04-15 23:32 | HP ---
ADMITTING DIAGNOSES: 1. Gestational hypertension in the third trimester. 2. Intrauterine at 36 weeks' 4 days' gestation to a 25-year-old 2, para 1 female. 3. Presentation for routine nonstress test in third trimester. SUBJECTIVE: The patient is a 25-year-old 2, para 1 female at 36 weeks 4 days' gestation, who presented for a routine NST on the labor and delivery floor. Of note, the patient was seen in clinic last week with routine NST and was noted to have elevated blood pressures to 150s over 80s. At this time, PIH labs were collected and the only positive lab was 0.3. The patient was allowed to return home as blood pressures returned back into normal range with close followup. The patient presented today for NST, and while being evaluated, was noted to have initial blood pressure of 176/87. Blood pressure was monitored and ranged between 160s over 80s/90s to 145/70. The patient denies signs and symptoms of preeclampsia including headache, vision changes, blurred vision, weakness, numbness, nausea, vomiting, abdominal pain, pain and swelling in lower extremities. The patient does endorse positive movement, denies contractions, denies leakage of fluid or vaginal bleeding. The patient otherwise feels well. The patient was monitored in the triage setting for 4 hours and was noted to have continued intermittently elevated blood pressures, so discussion was had to continue with admission and watch overnight. PAST MEDICAL HISTORY: Pertinent medical history includes BMI of 41, rubella immune, diet-controlled gestational diabetes in third trimester, depression in third trimester, A positive blood type, headaches/migraines chronically. PERTINENT OBSTETRICAL HISTORY: The patient is a 2, para 1 female with history of gestational diabetes and -induced hypertension in first . Baby was born at 39 weeks 5 days' gestation via . SURGICAL HISTORY: Please see [facility] for further details. FAMILY HISTORY: No significant family history. Please see [place] for further details. SOCIAL HISTORY: The patient is to , [place]. They have 1 son named Ethan born in 2018. 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 OBJECTIVE: Vital Signs: HR 79 bpm, BP 176/88, RR 16 breaths per minute, temp 98.6 degrees Fahrenheit, weight 234 pounds, height 5 feet 4 inches. Appearance: The patient lying comfortably in bed. HEENT: Within normal limits. Lungs: Clear to auscultation bilaterally. No increased work of breathing. No wheezing or rales noted. Heart: Regular rate and rhythm. No murmurs noted. Abdomen: Soft, gravid uterus palpated 17 cm above umbilicus. Extremities: Trace pedal edema present bilaterally. No calf pain or tenderness with palpation. Neurologic: Reflexes within normal limits. No clonus noted. Cervical: 1 cm dilated, 25% effaced, -3 station. Electronic monitoring: Baseline heart rate 140 bpm, accels present, no decelerations noted. [place]: Uterine irritability present, no contractions. Interpretation: Category 1 strip. Reactive NST. ASSESSMENT: The patient is a 25-year-old 2, para 1 female at 36 weeks' 4 days' gestation, presenting for NST due to concern of gestational hypertension with now diagnosed gestational hypertension and concern for preeclampsia. PLAN: 1. Will admit to Labor and Delivery for observation of severe range blood pressures. 2. We will continue with continuous monitoring. 3. Routine vital signs every half an hour and p.r.n. 4. Bedrest as able. 5. Continue laboratory evaluation with WBC, CMP, urinalysis, COVID test, group B strep. 6. We will give betamethasone IM 12 mg. The first dose is given at 2 p.m. 7. We will give second dose at 24 hours. 8. We will give 200 mg p.o. labetalol now, then b.i.d. thereafter. The patient was seen and evaluated today by myself and Dr. Artur Quinn. Assessment and plan is under advisement of Dr. Quinn. LABORATORY DATA: CBC: Hemoglobin 11.7, hematocrit 34.4, platelet count 176. CMP: BUN 5, creatinine 0.49, GFR greater than 60, uric acid 3.3, AST 12, ALT 18, LDH 161. Urinalysis: Positive for ketones, proteinuria at 12.9, protein creatinine ratio 0.2847. COVID test: Negative. [facility] /[id number]
--- NOTE | 2021-04-16 03:56 | PCM.PNPP ---
- General Info Date of Service: 04/16/21 (PPD # 1 S/P ) Functional Status: Reports: Pain Controlled, Tolerating Diet, Ambulating, Urinating - Review of Systems General: Reports: No Symptoms HEENT: Reports: No Symptoms Pulmonary: Reports: No Symptoms Cardiovascular: Reports: No Symptoms Gastrointestinal: Reports: No Symptoms Genitourinary: Reports: No Symptoms Musculoskeletal: Reports: No Symptoms Skin: Reports: No Symptoms Neurological: Reports: No Symptoms Psychiatric: Reports: No Symptoms - General Info Date of Service: 04/16/21 (PPD # 1 S/P ) - Patient Data Vital Signs - Most Recent: Last Vital Signs Temp 98.3 F 04/15/21 19:39 Pulse 60 04/15/21 21:00 Resp 18 04/15/21 19:39 BP 130/70 04/15/21 21:00 Pulse Ox 99 04/15/21 19:39 Weight - Most Recent: 239 lb I&O - Last 24 Hours: Intake & Output 04/15/21 04/15/21 04/16/21 14:59 22:59 06:59 Intake Total 2225 300 Output Total 1000 Balance 1225 300 Med Orders - Current: Current Medications Acetaminophen (Acetaminophen 325 Mg Tab) 650 mg PO Q4H PRN PRN Reason: Pain/Fever Acetaminophen (Acetaminophen 325 Mg Tab) 650 mg PO Q6H PRN PRN Reason: Pain/Fever Benzocaine/Menthol (Benzocaine/Menthol 20%-0.5% [place] 78 Gm Cannister) 0 gm TOP Q4H PRN PRN Reason: Perineal comfort measures Last Admin: 04/15/21 11:31 Dose: 1 applic Documented by: Calcium Carbonate/Glycine (Calcium Carbonate 500 Mg Tab.Chew) 1,000 mg PO Q2H PRN PRN Reason: Heartburn Last Admin: 04/13/21 22:42 Dose: 1,000 mg Documented by: Carboprost Tromethamine (Carboprost Tromethamine 250 Mcg/1 Ml Amp) 250 mcg IM ASDIRECTED PRN PRN Reason: Excessive vaginal bleeding Docusate Sodium (Docusate Sodium 100 Mg Cap) 100 mg PO BID PRN PRN Reason: Constipation Last Admin: 04/15/21 21:16 Dose: 100 mg Documented by: Ferrous Sulfate (Ferrous Sulfate 325 Mg Tab) 325 mg PO BIDMEALS [place] Last Admin: 04/15/21 18:15 Dose: 325 mg Documented by: Hydroxyzine HCl (Hydroxyzine Hcl 25 Mg Tab) 50 mg PO BEDTIME PRN PRN Reason: Sleep Tranexamic Acid 1,000 mg/ (Sodium Chloride) 110 mls @ 660 mls/hr IV ONETIME PRN PRN Reason: Bleeding Ibuprofen (Ibuprofen 800 Mg Tab) 800 mg PO Q8H PRN PRN Reason: Cramping Last Admin: 04/15/21 21:14 Dose: 800 mg Documented by: Labetalol HCl (Labetalol 100 Mg Tab) 200 mg PO BID [facility] Last Admin: 04/15/21 21:00 Dose: Not Given Documented by: Misoprostol (Misoprostol 400 Mcg (4 X 100 Mcg Tab)) 800 mcg RECTAL ONETIME PRN PRN Reason: Hemorrhage Naloxone HCl (Naloxone 2 Mg/2 Ml Syringe) 0.1 mg IVPUSH SEECOMMENT PRN PRN Reason: Respiratory Depression Ondansetron HCl (Ondansetron 4 Mg/2 Ml Sdv) 4 mg IVPUSH Q4H PRN PRN Reason: Nausea/Vomiting Last Admin: 04/15/21 06:31 Dose: 4 mg Documented by: Prenat Multivit/[place]/Iron/Folic Ac ( Multivitamin With Calcium/Folic Acid/Iron Tab) 1 each PO DAILY [facility] Last Admin: 04/15/21 11:32 Dose: 1 each Documented by: Promethazine HCl (Promethazine 25 Mg/Ml Sdv) 12.5 mg IM Q6H PRN PRN Reason: Nausea/Vomiting Simethicone (Simethicone 80 Mg Tab.Chew) 80 mg PO Q4H PRN PRN Reason: Gas Sodium Chloride (Sodium Chloride 0.9% 10 Ml Syringe) 10 ml FLUSH ASDIRECTED PRN PRN Reason: Keep Vein Open Zolpidem Tartrate (Zolpidem 5 Mg Tab) 5 mg PO BEDTIME PRN PRN Reason: Insomnia Discontinued Medications Betamethasone Acet/Betameth SodPhos (Betamethasone Acetate/Betamethasone Sod Phosphate 30 Mg/5 Ml Mdv) 12 mg IM ONETIME ONE Stop: 04/13/21 13:24 Last Admin: 04/13/21 13:57 Dose: 12 mg Documented by: Betamethasone Acet/Betameth SodPhos (Betamethasone Acetate/Betamethasone Sod Phosphate 30 Mg/5 Ml Mdv) 12 mg IM ONETIME ONE Stop: 04/14/21 13:31 Last Admin: 04/14/21 13:25 Dose: 12 mg Documented by: Calcium Carbonate/Glycine (Calcium Carbonate 500 Mg Tab.Chew) 1,000 mg PO ONETIME ONE Stop: 04/13/21 16:15 Last Admin: 04/13/21 16:27 Dose: 1,000 mg Documented by: Ephedrine Sulfate (Ephedrine 50 Mg/Ml Sdv) 5 mg IVPUSH Q5M PRN PRN Reason: See Label Comments Epinephrine HCl (Epinephrine 1 Mg/Ml Sdv) Confirm Administered Dose 1 mg .ROUTE .STK-MED ONE Stop: 04/15/21 00:11 Last Admin: 04/15/21 02:10 Dose: Not Given Documented by: Epinephrine HCl (Epinephrine 1 Mg/Ml Sdv) Confirm Administered Dose 1 mg .ROUTE .STK-MED ONE Stop: 04/15/21 06:11 Last Admin: 04/15/21 06:26 Dose: Not Given Documented by: Fentanyl (Fentanyl 100 Mcg/2 Ml Sdv) Confirm Administered Dose 100 mcg .ROUTE .STK-MED ONE Stop: 04/15/21 00:11 Last Admin: 04/15/21 02:10 Dose: Not Given Documented by: Fentanyl (Fentanyl 100 Mcg/2 Ml Sdv) Confirm Administered Dose 100 mcg .ROUTE .STK-MED ONE Stop: 04/15/21 06:10 Last Admin: 04/15/21 06:26 Dose: Not Given Documented by: Lactated Ringer's (Ringers, Lactated) 1,000 mls @ 125 mls/hr IV ASDIRECTED [facility] Last Admin: 04/15/21 06:21 Dose: 125 mls/hr Documented by: Oxytocin/Sodium Chloride (Pitocin In Ns 30 Unit/500 Ml) 30 unit in 500 mls @ 2 mls/hr IV TITRATE [facility]; Protocol Last Admin: 04/15/21 08:00 Dose: 8 munits/min, 8 mls/hr Documented by: Lactated Ringer's (Ringers, Lactated) 500 mls @ 999 mls/hr IV SEECOMMENT [place] Lactated Ringer's (Ringers, Lactated) 500 mls @ 999 mls/hr IV .BOLUS [facility] Penicillin G Potassium 5 (millunits/ Sodium Chloride) 100 mls @ 200 mls/hr IV ONETIME ONE Stop: 04/14/21 17:51 Last Admin: 04/14/21 18:19 Dose: 200 mls/hr Documented by: Penicillin G Potassium 3 (millunits/ Sodium Chloride) 100 mls @ 200 mls/hr IV Q4H [facility] Last Admin: 04/15/21 10:02 Dose: Not Given Documented by: Nalbuphine HCl (Nalbuphine 10 Mg/1 Ml Vial) 10 mg IV ONETIME ONE Stop: 04/14/21 16:57 Last Admin: 04/14/21 17:13 Dose: 10 mg Documented by: Nalbuphine HCl (Nalbuphine 10 Mg/1 Ml Vial) 10 mg IV ONETIME ONE Stop: 04/14/21 21:38 Last Admin: 04/14/21 21:49 Dose: 10 mg Documented by: Sodium Chloride (Sodium Chloride 0.9% 10 Ml Syringe) 10 ml FLUSH ASDIRECTED PRN PRN Reason: Keep Vein Open Sufentanil Citrate (Sufentanil 50 Mcg/1 Ml Amp) Confirm Administered Dose 50 mcg .ROUTE .STK-MED ONE Stop: 04/15/21 00:11 Last Admin: 04/15/21 02:11 Dose: Not Given Documented by: Sufentanil Citrate (Sufentanil 50 Mcg/1 Ml Amp) Confirm Administered Dose 50 mcg .ROUTE .STK-MED ONE Stop: 04/15/21 06:11 Last Admin: 04/15/21 06:26 Dose: Not Given Documented by: - Infant Interaction Disposition, : to Nursery Infant Interaction: Holding Feeding: Bottle Fed Support Person: - Recovery Exam Fundal Tone: Firm Fundal Level: 1 Fingerbreadths Below Umbilicus Fundal Placement: Midline Lochia Amount: Small Lochia Color: [place]/Red Perineum Description: Intact, Minimal Bruising/Swelling Episiotomy/Laceration: Approximated Bladder Status: Nonpalpable Urinary Elimination: Voided - Exam General: Alert, Oriented, Cooperative, No Acute Distress HEENT: Pupils Equal, Pupils Reactive, EOMI, Mucous Membr. Moist/[place] Neck: Supple Lungs: Clear to Auscultation, Normal Respiratory Effort Cardiovascular: Regular Rate, Regular Rhythm GI/Abdominal Exam: Normal Bowel Sounds, Soft, Non-Tender, No Distention Extremities: Normal Inspection, Normal Range of Motion, Non-Tender, No Pedal Edema Skin: Warm, Dry, Intact Wound/Incisions: Healing Well Neurological: No New Focal Deficit, Normal Gait, Normal Speech, Normal Tone, Strength Equal Bilateral Psy/Mental Status: Alert, Normal Affect, Normal Mood - Problem List Review Problem List Initiated/Reviewed/Updated: Yes - My Orders Last 24 Hours: My Active Orders 04/15/21 03:15 Insert Urinary Catheter [OM.PC] Q24H 04/15/21 07:01 Consult to Tool Tender [CONS] Routine Acetaminophen [TylenoL] 650 mg PO Q6H PRN Benzocaine/Menthol [Dermoplast Pain Relief 20%-0.5% [place]] See Dose Instructions TOP Q4H PRN Carboprost Tromethamine [Hemabate DS] 250 mcg IM ASDIRECTED PRN Docusate Sodium [Colace] 100 mg PO BID PRN Ibuprofen [Motrin] 800 mg PO Q8H PRN Simethicone 80 mg PO Q4H PRN Sodium Chloride 0.9% [Saline Flush] 10 ml FLUSH ASDIRECTED PRN Tranexamic Acid [Cyklokapron] 1,000 mg Sodium Chloride 0.9% [Normal Saline] 100 ml IV ONETIME Zolpidem [Ambien] 5 mg PO BEDTIME PRN miSOPROStoL [Cytotec] 800 mcg RECTAL ONETIME PRN Resuscitation Status Routine 04/15/21 07:02 Notify Provider Vital Signs OB [RC] ASDIRECTED Up ad [place]u [RC] ASDIRECTED Assess Lochia [WOMSER] Per Unit Routine Assess Uterine Involution [WOMSER] Per Unit Routine Breast Pump [WOMSER] Per Unit Routine Ice Therapy [OM.PC] Per Unit Routine Perineal Care [OM.PC] Per Unit Routine Saline Lock Insert [OM.PC] Urgent Sitz Bath [OM.PC] Per Unit Routine 04/15/21 Breakfast Regular Diet [DIET] 04/15/21 08:00 Ferrous Sulfate 325 mg PO BIDMEALS 04/15/21 09:00 Vit with Ca/FA/Iron [ Plus Iron] 1 each PO DAILY 04/15/21 Lunch Regular Diet [DIET] 04/15/21 Dinner Regular Diet [DIET] 04/16/21 06:00 CBC W/O DIFF,HEMOGRAM [HEME] Routine - Assessment Assessment:: PPD # 1 S/P doing well Desires to go home today if infant ready - Plan Plan:: 1. Continue routine care. 2. Will see if able to be discharged. 3. All Blood pressures have been normal since delivery. 4. Follow up with Dr. Spears in the office for recheck.
--- NOTE | 2021-04-16 07:25 | OBOUT ---
DATE: 04/13/2021 This is an NST report. heart rate: Baseline 140 bpm, moderate variability, accelerations present, no decelerations noted. [place]: No contractions visualized. Uterine irritability present. INTERPRETATION: Category 1 strip, reactive NST. [facility] /[id number]
[2021-04-16 08:08] VITALS: BP 139/71; PULSE 72
[2021-04-16] MEDS: Prenatal Multivitamin with Calcium/Folic Acid/Iron Tab PO SCH (08:23)
[2021-04-16] MEDS: Ferrous Sulfate 325 MG Tab PO SCH (08:23)
[2021-04-16] MEDS: Ibuprofen 800 MG Tab PO PRN (08:24)
--- NOTE | 2021-04-16 08:26 | PCM.DCSUM1 ---
<TosinatifMegan H - Last Filed: 04/16/21 09:36> Discharge Summary - Hospital Course Free Text/Narrative:: Patient's course has been relatively uncomplicated. PPD #1: Blood pressure has been controlled without medication. Denies s/sx of Pre-E. Lochia is mild in degree. Pain is managed with OTC medication. Patient is ambulating, tolerating PO intake, urinating and passing gas appropriately. Patient is formula feeding infant. Bonding well. Patient endorses wishes for 24hr discharge. - Discharge Data Discharge Date: 04/16/21 Discharge Disposition: Home, Self-Care 01 Condition: Good - Referral to Home Health Primary Care Physician: Nora Spears MD - Discharge Diagnosis/Problem(s) (1) (normal spontaneous vaginal delivery) SNOMED Code(s): 98870265, [id number] ICD Code: O80 - ENCOUNTER FOR FULL-TERM UNCOMPLICATED DELIVERY Status: A cute (2) Gestational diabetes mellitus (GDM) SNOMED Code(s): 21765199 ICD Code: O24.419 - GESTATIONAL DIABETES MELLITUS IN , UNSP CONTROL Status: Acute - Patient Summary/Data Consults: Consultations 04/15/21 07:01 Consult to Hospital Librarian [CONS] Routine - Patient Instructions Diet: Regular Diet as Tolerated Activity: Apply Ice, As Tolerated, Full Weight Bearing, Rest and Relax Today Showering/Bathing: May Shower Notify Provider of: Fever, Increased Pain, Swelling and Redness, Nausea and/or Vomiting - Discharge Plan *PRESCRIPTION DRUG MONITORING PROGRAM REVIEWED*: Not Applicable *COPY OF PRESCRIPTION DRUG MONITORING REPORT IN PATIENT ISABELL: Not Applicable Home Medications: Home Meds Acetaminophen 325 - 650 mg PO ASDIRECTED PRN 03/23/20 [History] Albuterol [Proair HFA] 1 - 2 puff INH ASDIRECTED PRN 03/23/20 [History] Diclofenac Sodium [Voltaren 1% Gel] 1 applic TOP ASDIRECTED 03/23/20 [History] Erenumab-Aooe [Aimovig Autoinjector] 140 mg INJECT .MONTHLY 03/23/20 [History] Venlafaxine [Effexor XR] 37.5 mg PO DAILY 03/23/20 [History] medroxyPROGESTERone [Depo-Provera] 150 mg INJECT .Q3MTHS 03/23/20 [History] Vits #93/Iron Fum/FA [ Formula Tablet] 1 tab PO DAILY 04/13/21 [History] Sertraline [Zoloft] 100 mg PO DAILY 04/13/21 [History] Patient Handouts: Depression, Baby Blues, Hypertension, Care After Vaginal Delivery - Discharge Summary/Plan Comment DC Time >30 min.: No Total # of Minutes for Discharge Time: - Discharge Summary/Plan Comment: -Follow-up scheduled with Dr. Spears in clinic on Friday04/17/21 for blood pressure recheck. - General Info Date of Service: 04/16/21 Functional Status: Reports: Pain Controlled, Tolerating Diet, Ambulating, Urinating - Patient Data Vitals - Most Recent: Last Vital Signs Temp 98 F 04/16/21 08:00 Pulse 72 04/16/21 08:00 Resp 16 04/16/21 08:00 BP 139/71 04/16/21 08:00 Pulse Ox 100 04/16/21 08:00 Weight - Most Recent: 108.409 kg I&O - Last 24 hours: Intake & Output 04/15/21 04/16/21 04/16/21 22:59 06:59 14:59 Intake Total 300 240 Balance 300 240 Lab Results - Last 24 hrs: Laboratory Results - last 24 hr 04/16/21 Range/Units 06:15 WBC 11.0 H (5.0-10.0) 10^3/uL RBC 3.58 L (4.2-5.4) 10^6/uL Hgb 10.2 L (12.0-16.0) g/dL Hct 31.3 L (37.0-47.0) % MCV 87.4 D (80-100) fL MCH 28.5 (27.0-34.0) pg MCHC 32.6 L (33.0-35.0) g/dL Plt Count 142 L (150-450) 10^3/uL [place] Results - Last 24 hrs: Microbiology 04/13/21 14:20 Group B Streptococcus Culture - Final Vaginal/Rectal NEGATIVE STREP GROUP B Med Orders - Current: Current Medications Acetaminophen (Acetaminophen 325 Mg Tab) 650 mg PO Q6H PRN PRN Reason: Pain/Fever Benzocaine/Menthol (Benzocaine/Menthol 20%-0.5% [place] 78 Gm Cannister) 0 gm TOP Q4H PRN PRN Reason: Perineal comfort measures Last Admin: 04/15/21 11:31 Dose: 1 applic Documented by: Calcium Carbonate/Glycine (Calcium Carbonate 500 Mg Tab.Chew) 1,000 mg PO Q2H PRN PRN Reason: Heartburn Last Admin: 04/13/21 22:42 Dose: 1,000 mg Documented by: Carboprost Tromethamine (Carboprost Tromethamine 250 Mcg/1 Ml Amp) 250 mcg IM ASDIRECTED PRN PRN Reason: Excessive vaginal bleeding Docusate Sodium (Docusate Sodium 100 Mg Cap) 100 mg PO BID PRN PRN Reason: Constipation Last Admin: 04/15/21 21:16 Dose: 100 mg Documented by: Ferrous Sulfate (Ferrous Sulfate 325 Mg Tab) [facility] Last Admin: 04/15/21 18:15 Dose: 325 mg Documented by: Hydroxyzine HCl (Hydroxyzine Hcl 25 Mg Tab) 50 mg PO BEDTIME PRN PRN Reason: Sleep Tranexamic Acid 1,000 mg/ (Sodium Chloride) 110 mls @ 660 mls/hr IV ONETIME PRN PRN Reason: Bleeding Ibuprofen (Ibuprofen 800 Mg Tab) 800 mg PO Q8H PRN PRN Reason: Cramping Last Admin: 04/15/21 21:14 Dose: 800 mg Documented by: Labetalol HCl (Labetalol 100 Mg Tab) 200 mg PO BID [facility] Last Admin: 04/15/21 21:00 Dose: Not Given Documented by: Misoprostol (Misoprostol 400 Mcg (4 X 100 Mcg Tab)) 800 mcg RECTAL ONETIME PRN PRN Reason: Hemorrhage Naloxone HCl (Naloxone 2 Mg/2 Ml Syringe) 0.1 mg IVPUSH SEECOMMENT PRN PRN Reason: Respiratory Depression Ondansetron HCl (Ondansetron 4 Mg/2 Ml Sdv) 4 mg IVPUSH Q4H PRN PRN Reason: Nausea/Vomiting Last Admin: 04/15/21 06:31 Dose: 4 mg Documented by: Prenat Multivit/[place]/Iron/Folic Ac ( Multivitamin With Calcium/Folic Acid/Iron Tab) 1 each PO DAILY [facility] Last Admin: 04/15/21 11:32 Dose: 1 each Documented by: Promethazine HCl (Promethazine 25 Mg/Ml Sdv) 12.5 mg IM Q6H PRN PRN Reason: Nausea/Vomiting Simethicone (Simethicone 80 Mg Tab.Chew) 80 mg PO Q4H PRN PRN Reason: Gas Sodium Chloride (Sodium Chloride 0.9% 10 Ml Syringe) 10 ml FLUSH ASDIRECTED PRN PRN Reason: Keep Vein Open Zolpidem Tartrate (Zolpidem 5 Mg Tab) 5 mg PO BEDTIME PRN PRN Reason: Insomnia Discontinued Medications Betamethasone Acet/Betameth SodPhos (Betamethasone Acetate/Betamethasone Sod Phosphate 30 Mg/5 Ml Mdv) 12 mg IM ONETIME ONE Stop: 04/13/21 13:24 Last Admin: 04/13/21 13:57 Dose: 12 mg Documented by: Betamethasone Acet/Betameth SodPhos (Betamethasone Acetate/Betamethasone Sod Phosphate 30 Mg/5 Ml Mdv) 12 mg IM ONETIME ONE Stop: 04/14/21 13:31 Last Admin: 04/14/21 13:25 Dose: 12 mg Documented by: Calcium Carbonate/Glycine (Calcium Carbonate 500 Mg Tab.Chew) 1,000 mg PO ONETIME ONE Stop: 04/13/21 16:15 Last Admin: 04/13/21 16:27 Dose: 1,000 mg Documented by: Ephedrine Sulfate (Ephedrine 50 Mg/Ml Sdv) 5 mg IVPUSH Q5M PRN PRN Reason: See Label Comments Epinephrine HCl (Epinephrine 1 Mg/Ml Sdv) Confirm Administered Dose 1 mg .ROUTE .STK-MED ONE Stop: 04/15/21 00:11 Last Admin: 04/15/21 02:10 Dose: Not Given Documented by: Epinephrine HCl (Epinephrine 1 Mg/Ml Sdv) Confirm Administered Dose 1 mg .ROUTE .STK-MED ONE Stop: 04/15/21 06:11 Last Admin: 04/15/21 06:26 Dose: Not Given Documented by: Fentanyl (Fentanyl 100 Mcg/2 Ml Sdv) Confirm Administered Dose 100 mcg .ROUTE .STK-MED ONE Stop: 04/15/21 00:11 Last Admin: 04/15/21 02:10 Dose: Not Given Documented by: Fentanyl (Fentanyl 100 Mcg/2 Ml Sdv) Confirm Administered Dose 100 mcg .ROUTE .STK-MED ONE Stop: 04/15/21 06:10 Last Admin: 04/15/21 06:26 Dose: Not Given Documented by: Lactated Ringer's (Ringers, Lactated) 1,000 mls @ 125 mls/hr IV ASDIRECTED [place] Last Admin: 04/15/21 06:21 Dose: 125 mls/hr Documented by: Oxytocin/Sodium Chloride (Pitocin In Ns 30 Unit/500 Ml) 30 unit in 500 mls @ 2 mls/hr IV TITRATE [place]; Protocol Last Admin: 04/15/21 08:00 Dose: 8 munits/min, 8 mls/hr Documented by: Lactated Ringer's (Ringers, Lactated) 500 mls @ 999 mls/hr IV SEECOMMENT [place] Lactated Ringer's (Ringers, Lactated) 500 mls @ 999 mls/hr IV .BOLUS [place] Penicillin G Potassium 5 (millunits/ Sodium Chloride) 100 mls @ 200 mls/hr IV ONETIME ONE Stop: 04/14/21 17:51 Last Admin: 04/14/21 18:19 Dose: 200 mls/hr Documented by: Penicillin G Potassium 3 (millunits/ Sodium Chloride) 100 mls @ 200 mls/hr IV Q4H [facility] Last Admin: 04/15/21 10:02 Dose: Not Given Documented by: Nalbuphine HCl (Nalbuphine 10 Mg/1 Ml Vial) 10 mg IV ONETIME ONE Stop: 04/14/21 16:57 Last Admin: 04/14/21 17:13 Dose: 10 mg Documented by: Nalbuphine HCl (Nalbuphine 10 Mg/1 Ml Vial) 10 mg IV ONETIME ONE Stop: 04/14/21 21:38 Last Admin: 04/14/21 21:49 Dose: 10 mg Documented by: Sodium Chloride (Sodium Chloride 0.9% 10 Ml Syringe) 10 ml FLUSH ASDIRECTED PRN PRN Reason: Keep Vein Open Sufentanil Citrate (Sufentanil 50 Mcg/1 Ml Amp) Confirm Administered Dose 50 mcg .ROUTE .STK-MED ONE Stop: 04/15/21 00:11 Last Admin: 04/15/21 02:11 Dose: Not Given Documented by: Sufentanil Citrate (Sufentanil 50 Mcg/1 Ml Amp) Confirm Administered Dose 50 mcg .ROUTE .STK-MED ONE Stop: 04/15/21 06:11 Last Admin: 04/15/21 06:26 Dose: Not Given Documented by: - Exam General: Reports: Alert, Oriented, Cooperative, No Acute Distress HEENT: Reports: EOMI Neck: Reports: Supple Lungs: Reports: Clear to Auscultation, Normal Respiratory Effort Cardiovascular: Reports: Regular Rate, Regular Rhythm GI/Abdominal Exam: Soft, Tender (mild), Other (firm uterus, palpated -2cm below U) Extremities: Pedal Edema (1+ nonpitting) Skin: Reports: Warm, Dry, Intact Neurological: Reports: No New Focal Deficit, Other (No clonus) <Nora Spears - Last Filed: 04/19/21 07:49> Discharge Summary - Referral to Home Health Primary Care Physician: Nora Spears MD - Patient Summary/Data Consults: Consultations 04/15/21 07:01 Consult to Hospital Librarian [CONS] Routine - Discharge Summary/Plan Comment Discharge Summary/Plan Comment: Patient was personally seen and examined with the medical student. I reviewed the noted scribed on my behalf and necessary changes have been made to reflect my opinion on the history, exam, assessment, and plan. Nora Spears MD - Patient Data Vitals - Most Recent: Last Vital Signs Temp 98 F 04/16/21 08:00 Pulse 72 04/16/21 08:00 Resp 16 04/16/21 08:00 BP 139/71 04/16/21 08:00 Pulse Ox 100 04/16/21 08:00 Med Orders - Current: Current Medications Discontinued Medications Acetaminophen (Acetaminophen 325 Mg Tab) 650 mg PO Q6H PRN PRN Reason: Pain/Fever Benzocaine/Menthol (Benzocaine/Menthol 20%-0.5% [place] 78 Gm Cannister) 0 gm TOP Q4H PRN PRN Reason: Perineal comfort measures Last Admin: 04/15/21 11:31 Dose: 1 applic Documented by: Betamethasone Acet/Betameth SodPhos (Betamethasone Acetate/Betamethasone Sod Phosphate 30 Mg/5 Ml Mdv) 12 mg IM ONETIME ONE Stop: 04/13/21 13:24 Last Admin: 04/13/21 13:57 Dose: 12 mg Documented by: Betamethasone Acet/Betameth SodPhos (Betamethasone Acetate/Betamethasone Sod Phosphate 30 Mg/5 Ml Mdv) 12 mg IM ONETIME ONE Stop: 04/14/21 13:31 Last Admin: 04/14/21 13:25 Dose: 12 mg Documented by: Calcium Carbonate/Glycine (Calcium Carbonate 500 Mg Tab.Chew) 1,000 mg PO ONETIME ONE Stop: 04/13/21 16:15 Last Admin: 04/13/21 16:27 Dose: 1,000 mg Documented by: Calcium Carbonate/Glycine (Calcium Carbonate 500 Mg Tab.Chew) 1,000 mg PO Q2H PRN PRN Reason: Heartburn Last Admin: 04/13/21 22:42 Dose: 1,000 mg Documented by: Carboprost Tromethamine (Carboprost Tromethamine 250 Mcg/1 Ml Amp) 250 mcg IM ASDIRECTED PRN PRN Reason: Excessive vaginal bleeding Docusate Sodium (Docusate Sodium 100 Mg Cap) 100 mg PO BID PRN PRN Reason: Constipation Last Admin: 04/15/21 21:16 Dose: 100 mg Documented by: Ephedrine Sulfate (Ephedrine 50 Mg/Ml Sdv) 5 mg IVPUSH Q5M PRN PRN Reason: See Label Comments Epinephrine HCl (Epinephrine 1 Mg/Ml Sdv) Confirm Administered Dose 1 mg .ROUTE .STK-MED ONE Stop: 04/15/21 00:11 Last Admin: 04/15/21 02:10 Dose: Not Given Documented by: Epinephrine HCl (Epinephrine 1 Mg/Ml Sdv) Confirm Administered Dose 1 mg .ROUTE .STK-MED ONE Stop: 04/15/21 06:11 Last Admin: 04/15/21 06:26 Dose: Not Given Documented by: Epinephrine HCl (Epinephrine 1 Mg/Ml Sdv) 0.1 mg .XX .STK-MED ONE Stop: 04/15/21 00:11 Epinephrine HCl (Epinephrine 1 Mg/Ml Sdv) 0.1 mg .XX .STK-MED ONE Stop: 04/15/21 06:11 Fentanyl (Fentanyl 100 Mcg/2 Ml Sdv) Confirm Administered Dose 100 mcg .ROUTE .STK-MED ONE Stop: 04/15/21 00:11 Last Admin: 04/15/21 02:10 Dose: Not Given Documented by: Fentanyl (Fentanyl 100 Mcg/2 Ml Sdv) Confirm Administered Dose 100 mcg .ROUTE .STK-MED ONE Stop: 04/15/21 06:10 Last Admin: 04/15/21 06:26 Dose: Not Given Documented by: Fentanyl (Fentanyl 100 Mcg/2 Ml Sdv) 25 mcg [place] .STK-MED ONE Stop: 04/15/21 00:11 Fentanyl (Fentanyl 100 Mcg/2 Ml Sdv) 20 mcg [place] .STK-MED ONE Stop: 04/15/21 06:11 Fentanyl (Fentanyl 100 Mcg/2 Ml Sdv) 20 mcg [place] .STK-MED ONE Stop: 04/15/21 06:11 Ferrous Sulfate (Ferrous Sulfate 325 Mg Tab) 325 mg PO BIDMEALS [facility] Last Admin: 04/16/21 08:23 Dose: 325 mg Documented by: Hydroxyzine HCl (Hydroxyzine Hcl 25 Mg Tab) 50 mg PO BEDTIME PRN PRN Reason: Sleep Lactated Ringer's (Ringers, Lactated) 1,000 mls @ 125 mls/hr IV ASDIRECTED [facility] Last Admin: 04/15/21 06:21 Dose: 125 mls/hr Documented by: Oxytocin/Sodium Chloride (Pitocin In Ns 30 Unit/500 Ml) 30 unit in 500 mls @ 2 mls/hr IV TITRATE [facility]; Protocol Last Admin: 04/15/21 08:00 Dose: 8 munits/min, 8 mls/hr Documented by: Lactated Ringer's (Ringers, Lactated) 500 mls @ 999 mls/hr IV SEECOMMENT [facility] Lactated Ringer's (Ringers, Lactated) 500 mls @ 999 mls/hr IV .BOLUS [facility] Penicillin G Potassium 5 (millunits/ Sodium Chloride) 100 mls @ 200 mls/hr IV ONETIME ONE Stop: 04/14/21 17:51 Last Admin: 04/14/21 18:19 Dose: 200 mls/hr Documented by: Penicillin G Potassium 3 (millunits/ Sodium Chloride) 100 mls @ 200 mls/hr IV Q4H [facility] Last Admin: 04/15/21 10:02 Dose: Not Given Documented by: Tranexamic Acid 1,000 mg/ (Sodium Chloride) 110 mls @ 660 mls/hr IV ONETIME PRN PRN Reason: Bleeding Ibuprofen (Ibuprofen 800 Mg Tab) 800 mg PO Q8H PRN PRN Reason: Cramping Last Admin: 04/16/21 08:24 Dose: 800 mg Documented by: Labetalol HCl (Labetalol 100 Mg Tab) 200 mg PO BID [facility] Last Admin: 04/15/21 21:00 Dose: Not Given Documented by: Misoprostol (Misoprostol 400 Mcg (4 X 100 Mcg Tab)) 800 mcg RECTAL ONETIME PRN PRN Reason: Hemorrhage Nalbuphine HCl (Nalbuphine 10 Mg/1 Ml Vial) 10 mg IV ONETIME ONE Stop: 04/14/21 16:57 Last Admin: 04/14/21 17:13 Dose: 10 mg Documented by: Nalbuphine HCl (Nalbuphine 10 Mg/1 Ml Vial) 10 mg IV ONETIME ONE Stop: 04/14/21 21:38 Last Admin: 04/14/21 21:49 Dose: 10 mg Documented by: Naloxone HCl (Naloxone 2 Mg/2 Ml Syringe) 0.1 mg IVPUSH SEECOMMENT PRN PRN Reason: Respiratory Depression Ondansetron HCl (Ondansetron 4 Mg/2 Ml Sdv) 4 mg IVPUSH Q4H PRN PRN Reason: Nausea/Vomiting Last Admin: 04/15/21 06:31 Dose: 4 mg Documented by: Prenat Multivit/[employer]/Iron/Folic Ac ( Multivitamin With Calcium/Folic Acid/Iron Tab) 1 each PO DAILY [facility] Last Admin: 04/16/21 08:23 Dose: 1 each Documented by: Promethazine HCl (Promethazine 25 Mg/Ml Sdv) 12.5 mg IM Q6H PRN PRN Reason: Nausea/Vomiting Simethicone (Simethicone 80 Mg Tab.Chew) 80 mg PO Q4H PRN PRN Reason: Gas Sodium Chloride (Sodium Chloride 0.9% 10 Ml Syringe) 10 ml FLUSH ASDIRECTED PRN PRN Reason: Keep Vein Open Sodium Chloride (Sodium Chloride 0.9% 10 Ml Syringe) 10 ml FLUSH ASDIRECTED PRN PRN Reason: Keep Vein Open Sufentanil Citrate (Sufentanil 50 Mcg/1 Ml Amp) Confirm Administered Dose 50 mcg .ROUTE .STK-MED ONE Stop: 04/15/21 00:11 Last Admin: 04/15/21 02:11 Dose: Not Given Documented by: Sufentanil Citrate (Sufentanil 50 Mcg/1 Ml Amp) Confirm Administered Dose 50 mcg .ROUTE .STK-MED ONE Stop: 04/15/21 06:11 Last Admin: 04/15/21 06:26 Dose: Not Given Documented by: Sufentanil Citrate (Sufentanil 50 Mcg/1 Ml Amp) 20 mcg [place] .STK-MED ONE Stop: 04/15/21 00:11 Zolpidem Tartrate (Zolpidem 5 Mg Tab) 5 mg PO BEDTIME PRN PRN Reason: Insomnia
== END 2021-04-16 10:40 | disposition home or self-care (01) | DRG 807 ==
LOC: DL.OBCHECK 12:39 → DL.OB 18:28 → OBSVTOIN 04-15 06:29
PROVIDERS: ADMIT Obstetrics & Gynecology; ATTEND Obstetrics & Gynecology
PROC: 10E0XZZ Delivery of Products of Conception, External Approach (ICD-10-PCS; principal; 2021-04-15)
PROC: 10907ZC Drainage of Amniotic Fluid, Therapeutic from Products of Conception, Via Natural or Artificial Opening (ICD-10-PCS; 2021-04-15)
PROC: 3E033VJ Introduction of Other Hormone into Peripheral Vein, Percutaneous Approach (ICD-10-PCS; 2021-04-15)
PROC: 0HQ9XZZ Repair Perineum Skin, External Approach (ICD-10-PCS; 2021-04-15)
PROC: 4A1HXCZ Monitoring of Products of Conception, Cardiac Rate, External Approach (ICD-10-PCS; 2021-04-15)
PROC: 3E0R3BZ Introduction of Anesthetic Agent into Spinal Canal, Percutaneous Approach (ICD-10-PCS; 2021-04-15)
DX: O14.04 Mild to moderate pre-eclampsia, complicating childbirth (principal); Z37.0 Single live birth; O24.420 Gestational diabetes mellitus in childbirth, diet controlled; Z3A.36 36 weeks gestation of pregnancy; O13.4 Gestational [pregnancy-induced] hypertension without significant proteinuria, complicating childbirth; Z20.822 Contact with and (suspected) exposure to COVID-19
CPT/HCPCS: 01967; 36415; 51701; 59025; 59409; 81003; 82565; 82570; 83615; 84156; 84450; 84460; 84520; 84550; 85025; 85027; 87081; A9270-GY; J0171; J0702; J2300; J2405; J2540; J2590; J3010; J7120; U0002

== ENCOUNTER 2021-10-13 21:09 | Emergency (ER) | payer OTHER ==
[2021-10-13 22:20] VITALS: BP 150/109; PULSE 116
[2021-10-13 22:21] LABS: CORONAVIRUS COVID-19 NAA POSITIVE (NEGATIVE)
== END 2021-10-13 22:34 | disposition left against medical advice (07) ==
LOC: DL.ED 21:09
DX: U07.1 COVID-19 (principal); Z53.21 Procedure and treatment not carried out due to patient leaving prior to being seen by health care provider
CPT/HCPCS: 0240U; 87081; 87430